=== PATIENT | male | born 1960 | race Caucasian/White ===

== ENCOUNTER 2018-07-09 10:40 | Emergency (ER) | payer OTHER, BC ==
[2018-07-09 10:54] VITALS: BP 162/99
[2018-07-09] MEDS ORDERED: Lidocaine 1% with EPINEPHrine 1:100,000 20 ML MDV INJECT ONE (11:04)
[2018-07-09] MEDS ORDERED: Diphtheria,Pertussis(Acell),Tetanus Vaccine 0.5 ML SDV IM ONE (11:04)
--- NOTE | 2018-07-09 11:33 | EDM.PDOC ---
ED HPI GENERAL MEDICAL PROBLEM - General Chief Complaint: Laceration Stated Complaint: LEFT HAND LAC Time Seen by Provider: 07/09/18 11:00 Source of Information: Reports: Patient History Limitations: Reports: No Limitations - History of Present Illness INITIAL COMMENTS - FREE TEXT/NARRATIVE: Patient is a 57 year old male who presents to the E.D. complaining of a laceration to the dorsal aspect of the left hand. 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 States the grinder set up operator gear tool accidentally jumped hitting his hand. Laceration did bleed quite abit. Controlled with direct pressure. Pain is localized. Denies N/T to fingers and or difficulty with moving fingers. Tetanus status is not up to date. Left Hand Pain Score (Numeric/FACES): 3 - Related Data Allergies Allergy/AdvReac Type Severity Reaction Status Date / Time hydrochlorothiazide Allergy Cannot Verified 07/09/18 10:55 Remember Home Meds: Home Meds B2/Vit A,C & E/Lut/Zeaxanth/Mn [Icaps] 1 each PO DAILY 02/02/14 [History] Lisinopril 5 mg PO DAILY 02/02/14 [History] Nitroglycerin 0.4 mg SL ASDIRECTED PRN 02/02/14 [History] amLODIPine [Norvasc] 10 mg PO BEDTIME 02/02/14 [History] Past Medical History HEENT History: Reports: Hard of Hearing, Impaired Vision Cardiovascular History: Reports: High Cholesterol, Hypertension, [place] Respiratory History: Reports: Bronchitis, Recurrent, Pneumonia, Recurrent Other Respiratory History: pleurssy Gastrointestinal History: Reports: GERD Genitourinary History: Reports: Other (See Below) Other Genitourinary History: prostate-has not seen doctor for it Musculoskeletal History: Reports: Arthritis, Back Pain, Chronic, Other (See Below) Other Musculoskeletal History: shoulder replacement Psychiatric History: Reports: Anxiety Oncologic (Cancer) History: Reports: None - Infectious Disease History Infectious Disease History: Reports: Chicken Pox - Past Surgical History GI Surgical History: Reports: Appendectomy Social & Family History - Family History Family Medical History: Noncontributory Oncologic: Reports: Lung - Tobacco Use Smoking Status *Q: Current Every Day Smoker Years of Tobacco use: 40 Packs/Tins Daily: 1 - Caffeine Use Caffeine Use: Reports: Coffee, Soda - Recreational Drug Use Recreational Drug Use: No - Living Situation & Occupation Living situation: Reports: , with Family Occupation: Employed ED ROS GENERAL - Review of Systems Review Of Systems: ROS reveals no pertinent complaints other than HPI. ED EXAM, SKIN/RASH Exam: See Below Exam Limited By: No Limitations General Appearance: Alert, WD/WN, No Apparent Distress Ears: Hearing Grossly Normal Nose: Normal Inspection Throat/Mouth: Normal Voice, No Airway Compromise Head: Atraumatic, Normocephalic Neck: Normal Inspection, Supple Respiratory/Chest: No Respiratory Distress, No Accessory Muscle Use Cardiovascular: Normal Peripheral Pulses, Regular Rate, Rhythm Peripheral Pulses: 2+: Radial (L) Extremities: Normal Range of Motion, Other (Patient is a 4 cm deep laceration to the dorsal aspect of the left hand along the second metacarpal. Small fragments of grinder set up operator gear tool pieces along the wound edges. Minimal bleeding present. With deeper examination no tendon involvement.) Neurological: Alert, Oriented, CN II-XII Intact, Normal Cognition, No Motor/ Sensory Deficits Psychiatric: Normal Affect, Normal Mood Skin: Warm, Dry, Normal Color ED SKIN PROCEDURES - Laceration/Wound Repair Left Dorsal Hand Lac/Wound length In cm: 4 Appearance: Subcutaneous, Mildly Contaminated Distal NVT: Neuro & Vascular Intact, No Tendon Injury Anesthetic Type: Local Local Anesthesia - Lidocaine (Xylocaine): 1% with EPI Local Anesthetic Volume: 5cc Skin Prep: Chlorhexidine (Hibiciens), Sterile Drape Exploration/Debridement/Repair: Wound Explored, In a Bloodless Field, Explored to Base, Foreign Material Removed Closed with: Sutures Suture Size: 4-0 # of Sutures: 5 Suture Type: Prolene, Interrupted (2), Mattress (3) Drain Placement: No Sterile Dressing Applied: Nurse Tetanus Status Addressed: Yes Complications: No Course - Vital Signs Last Recorded V/S: Last Vital Signs Temp 98.6 F 07/09/18 10:52 Pulse 91 07/09/18 10:52 Resp 18 07/09/18 10:52 BP 162/99 H 07/09/18 10:52 Pulse Ox 97 07/09/18 10:52 - Orders/Labs/Meds Orders: Active Orders 24 hr Category Date Time Status Vaccines to be Administered [RC] PER UNIT ROUTINE Care 07/09/18 11:05 Active Meds: Medications Discontinued Medications Generic Name Dose Route Start Last Admin Trade Name Freq PRN Reason Stop Dose Admin Diphtheria/Tetanus/Acell Pertussis 0.5 ml 07/09/18 11:04 Adacel IM 07/09/18 11:05 .ONCE ONE Lidocaine/Epinephrine 20 ml 07/09/18 11:04 07/09/18 11:11 Xylocaine 1% With Epinephrine 1:100,000 INJECT 07/09/18 11:05 20 ml ONETIME ONE Administration - Re-Assessments/Exams Free Text/Narrative Re-Assessment/Exam: Laceration closed with no complications. Tetanus status is up to date. On examination of the laceration there was no tendon involvement. The only superficial debris noted to the wound edges. No antibiotic required at this point. Discharge instructions as documented. Departure - Departure Time of Disposition: 11:32 Disposition: Home, Self-Care 01 Condition: Good Clinical Impression: Hand laceration Qualifiers: Encounter type: initial encounter Foreign body presence: without foreign body Laterality: left Qualified Code(s): S61.412A - Laceration without foreign body of left hand, initial encounter - Discharge Information Instructions: Laceration Care, Adult, Stitches, Constantia, or Adhesive Wound Closure Referrals: Maty Quijano MD [Primary Care Provider] - Forms: ED Department Discharge Additional Instructions: Cleanse site twice daily, PAT dry, reapply bacitracin ointment. Keep area clean and dry. Do not soak wound. Followup with a provider at [facility] in 10 days for suture removal free of charge. Return back to the ED for increased redness, increased swelling, or purulent drainage. - My Orders Last 24 Hours: My Active Orders 07/09/18 11:05 Vaccines to be Administered [RC] PER UNIT ROUTINE - Assessment/Plan Last 24 Hours: My Active Orders 07/09/18 11:05 Vaccines to be Administered [RC] PER UNIT ROUTINE
== END 2018-07-09 11:40 | disposition home or self-care (01) ==
LOC: JD.ED 10:40
DX: S61.422A Laceration with foreign body of left hand, initial encounter (principal); F17.210 Nicotine dependence, cigarettes, uncomplicated; I10 Essential (primary) hypertension; F41.9 Anxiety disorder, unspecified; I25.2 Old myocardial infarction; K21.9 Gastro-esophageal reflux disease without esophagitis; Z79.899 Other long term (current) drug therapy; Z23 Encounter for immunization; Z88.8 Allergy status to other drugs, medicaments and biological substances; W22.8XXA Striking against or struck by other objects, initial encounter
CPT/HCPCS: 12002; 90471; 90715; 99283-25

== ENCOUNTER 2019-07-22 18:24 | Emergency (ER) | payer BC, OTHER ==
[2019-07-22 18:41] VITALS: BP 160/105; PULSE 91
[2019-07-22] MEDS ORDERED: Acetaminophen/HYDROcodone 325-5 MG Tab PO ONE (20:39)
--- NOTE | 2019-07-22 20:41 | EDM.PDOC ---
ED HPI GENERAL MEDICAL PROBLEM - General Chief Complaint: Upper Extremity Injury/Pain Stated Complaint: R HAND INJURY Time Seen by Provider: 07/22/19 19:01 Source of Information: Reports: Patient, Family (, daughter), Other ( Daughter's boyfriend) History Limitations: Reports: No Limitations - History of Present Illness INITIAL COMMENTS - FREE TEXT/NARRATIVE: Mr. Canales is a pleasant 58-year-old man who states that he was holding onto an air hose that was being retracted at his place of work yesterday afternoon, 07/21/2019, when the hose pulled his hand. He states that he immediately experienced pain to his right thumb, but since then, he has developed numbness to his through fifth fingers, and if he moves his fingers or hands, pain shoots up into his forearm. His right hand, including the fingers, have become swollen. By 15:00, he was unable to move his fingers without significant pain. The patient states that he has not taken any lrpt-[id number]-axihnnf or home remedies to treat his injury. No prior right hand injury. The patient's PCP is Dr. Maty Quijano. Right Hand Pain Score (Numeric/FACES): 9 - Related Data Allergies Allergy/AdvReac Type Severity Reaction Status Date / Time hydrochlorothiazide Allergy Nausea Verified 07/22/19 18:41 Home Meds: Home Meds B2/Vit A,C & E/Lut/Zeaxanth/Mn [Icaps] 1 each PO DAILY 02/02/14 [History] Lisinopril 5 mg PO DAILY 02/02/14 [History] Nitroglycerin 0.4 mg SL ASDIRECTED PRN 02/02/14 [History] amLODIPine [Norvasc] 10 mg PO BEDTIME 02/02/14 [History] Acetaminophen/HYDROcodone [[place] 325-5 MG] 1 - 2 tab PO Q6H PRN #14 tablet 07/22 [Rx] Past Medical History HEENT History: Reports: Hard of Hearing, Impaired Vision Cardiovascular History: Reports: CAD (untreated), High Cholesterol (untreated), Hypertension (untreated), [place] (dx'd by coroary angiogram) Gastrointestinal History: Reports: GERD (untreated) Genitourinary History: Reports: BPH (untreated) Musculoskeletal History: Reports: Arthritis Psychiatric History: Reports: Anxiety (untreated) - Infectious Disease History Infectious Disease History: Reports: Chicken Pox - Past Surgical History Cardiovascular Surgical History: Reports: Other (See Below) (Coronary angiogram) GI Surgical History: Reports: Appendectomy, Lysis of Adhesions (x 4 or 5), Other (See Below) (Exploratory laparotomy) Musculoskeletal Surgical History: Reports: Shoulder Surgery (right arthroscopy x 3 -> failed -> reverse arthroplasty) Social & Family History - Family History Family Medical History: Noncontributory Oncologic: Reports: Lung - Tobacco Use Smoking Status *Q: Current Every Day Smoker Years of Tobacco use: 45 Packs/Tins Daily: 0.8 Packs/Tins Daily Comment: Down from 3 ppd - Caffeine Use Caffeine Use: Reports: Coffee - Alcohol Use Alcohol Use History: Yes Alcohol Use Frequency: Socially (occasionally to excess) - Recreational Drug Use Recreational Drug Use: Yes Recreational Drug Type: Reports: Marijuana/Hashish (last smoked ) - Living Situation & Occupation Living situation: Reports: , with Spouse, with Family (Daughter) 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 ED EXAM, GENERAL - Physical Exam Exam: See Below Exam Limited By: No Limitations General Appearance: Alert, WD/WN, No Apparent Distress Extremities: Other (There is swelling to the entire right hand, including the fingers, and extending to the wrist, with the most significant swelling to the thenar eminence and dorsal aspect of the first MCP joint. The first MCP joint is so tender that the patient is guarding, however, he also reports tenderness to palpation of his fingers, which he reports have paresthesia. Vascular status of the right upper strongly appears to be intact, as all fingers are warm. The patient refuses to try to move his fingers, hand or wrist, due to pain.) ED TRAUMA EXTREMITY PROCEDURES - Splinting Right Upper Extremity Splint Site: Right hand/wrist Pre-Procedure NV Status: Abnormal (Paresthesia all fingers, well-perfused) Post-Procedure NV Status: Abnormal (Paresthesia all fingers, well-perfused, unchanged) Splint Material: Fiberglass Splint Design: Gutter (ulnar) Applied & Form Fitted By: Provider Provider Post-Splint Application NV Check: NV Status Normal (Paresthesia all fingers, well-perfused, unchanged), Good Position Complications: No Course - Vital Signs Last Recorded V/S: Last Vital Signs Temp 36.6 C 07/22/19 18:37 Pulse 91 07/22/19 18:37 Resp 20 07/22/19 18:37 BP 160/105 H 07/22/19 18:37 Pulse Ox 100 07/22/19 18:37 - Orders/Labs/Meds Orders: Active Orders 24 hr Category Date Time Status Hand Comp Min 3V Rt [CR] Stat Exams 07/22/19 20:38 Taken Wrist Comp Min 3V Rt [CR] Stat Exams 07/22/19 20:39 Taken Meds: Medications Discontinued Medications Generic Name Dose Route Start Last Admin Trade Name Freq PRN Reason Stop Dose Admin Hydrocodone Bitart/Acetaminophen 2 tab 07/22/19 20:39 07/22/19 21:00 [place] 325-5 Mg PO 07/22/19 20:40 2 tab ONETIME ONE Administration - Re-Assessments/Exams Free Text/Narrative Re-Assessment/Exam: 07/22/19 20:40 Clearly, there is significant swelling to the patient's right hand, to the point that he has significant paresthesia to all of his fingers, with pain to his hand shooting up his right forearm with virtually any movement of his hand or fingers. The patient is guarding his right hand, reflecting how painful it is. I have ordered x-rays of the hand and wrist to rule out a fracture, although the mechanism of his injury does not suggest a fracture. I have also ordered 2 tablets of [place]. 07/22/19 21:06 There appears to be a comminuted fracture of the patient's trapezium, and there may be a small intra-articular chip fracture to the volar aspect of the radius, but I am not certain, therefore I have asked [facility] to interpret. 07/22/19 21:47 4-view radiographs of the right hand are read by [facility] as "No acute findings." 4-view radiographs of the right wrist are read by [facility] as "Degenerative change. No obvious acute bony abnormality. If symptoms persist then MRI." 07/22/19 22:55 The patient's right upper extremity was placed into an ulnar gutter splint extending from the MCPs to above the elbow, with the hand in a thumbs-up position, and the elbow at 90. The patient tolerated the procedure well. I will discharge him home with the recommendation that he take wetx-yhl-axfavwy ibuprofen vimywq-yld-kmxot, ice, and elevate his right and/wrist as much as possible over the next couple of days. I will prescribe some [place]. I will refer him to Dr. Lomas for follow-up. Departure - Departure Time of Disposition: 22:56 Disposition: Home, Self-Care 01 Condition: Good Clinical Impression: Trapezium bone fracture, closed - Discharge Information *PRESCRIPTION DRUG MONITORING PROGRAM REVIEWED*: Not Applicable *COPY OF PRESCRIPTION DRUG MONITORING REPORT IN PATIENT RASHIDA: Not Applicable Prescriptions: Acetaminophen/HYDROcodone [[place] 325-5 MG] 1 - 2 tab PO Q6H PRN #14 tablet PRN Reason: Pain (Severe 7-10) Referrals: Maty Quijano MD [Primary Care Provider] - Julio C Lomas MD [Physician] - Forms: ED Department Discharge Additional Instructions: You were seen in the emergency room after injuring your right hand and wrist area when it was pulled by a retracting air hose Friday. Workup in the ER included x-rays of your right hand and right wrist, which likely show a fracture of your trapezium bone. You may also have a chip off your distal radius. Your right arm was placed into a splint. The splint cannot get wet. We recommend that you ice and elevate your right hand/wrist as much as possible over the next few days, to help minimize swelling. Take pdqh-ijd-sdrkhup ibuprofen, 3 tablets (600 mg) every 8 hours, around-the- clock. You have been prescribed the opioid pain reliever [place]. Take 1-2 tablets of [place] up to every 6 hours, as needed for pain not relieved by ibuprofen. If you take [place], do not drive or operate heavy machinery for 12 hours after taking. [place] may cause constipation, so consider taking a stool softener. Follow-up with the Orthopedic Surgeon Dr. Julio C Lomas at the next available appointment. If any other problems, please do not hesitate to return to the ER. - My Orders Last 24 Hours: My Active Orders 07/22/19 20:38 Hand Comp Min 3V Rt [CR] Stat 07/22/19 20:39 Wrist Comp Min 3V Rt [CR] Stat - Assessment/Plan Last 24 Hours: My Active Orders 07/22/19 20:38 Hand Comp Min 3V Rt [CR] Stat 07/22/19 20:39 Wrist Comp Min 3V Rt [CR] Stat
--- NOTE | 2019-07-23 07:09 | CR ---
Right hand: Four views of the right hand were obtained. Comparison: No prior hand exam. Findings: Bony debris seen off the lateral side of the wrist (radial side) compatible with previous injury. Margin of these fractures are somewhat sclerotic and findings are most likely old. Joint space narrowing is noted within the third MCP joint. Mild degenerative change is noted within the CMC joint of the thumb. No acute fracture or other bony abnormality is seen. Impression: 1. Bone debris most likely representing old injury off the radial side of the wrist. 2. Degenerative change. 3. Nothing acute is definitely appreciated. Diagnostic code #2 I agree with preliminary report issued by [facility] ([facility] preliminary report dictated on 07/22/19, 10:42 PM Central Time)
--- NOTE | 2019-07-23 07:09 | CR ---
Right wrist: Four views of the right wrist were obtained. Comparison: No prior right wrist exam. Small bony densities again seen off the radial side of the wrist. As mentioned on hand exam, these are felt compatible with old fracture fragments. Mild degenerative change is seen within the CMC joint of the thumb. No acute fracture, dislocation or other bony abnormality is seen. Soft tissue swelling is noted. Impression: 1. Presumed old injury off the radial side of the wrist. 2. Soft tissue swelling. 3. Degenerative change without definite acute bony abnormality. Note: If patient continues to have symptoms, recommend repeat study in 10-14 days. Diagnostic code #3 Agree with preliminary report issued by [facility] ([facility] preliminary report dictated on 07/22/19, 10:42 PM Central Time)
== END 2019-07-22 23:07 | disposition home or self-care (01) ==
LOC: JD.ED 18:24
DX: S62.171A Displaced fracture of trapezium [larger multangular], right wrist, initial encounter for closed fracture (principal); I10 Essential (primary) hypertension; I25.10 Atherosclerotic heart disease of native coronary artery without angina pectoris; F17.200 Nicotine dependence, unspecified, uncomplicated; Z79.899 Other long term (current) drug therapy; Z88.8 Allergy status to other drugs, medicaments and biological substances; X50.9XXA Other and unspecified overexertion or strenuous movements or postures, initial encounter; Y93.89 Activity, other specified; Y92.89 Other specified places as the place of occurrence of the external cause; Y99.0 Civilian activity done for income or pay
CPT/HCPCS: 29125; 73110; 73130; 99283; A9270

== ENCOUNTER 2020-01-14 02:50 | Inpatient (IN) | payer MEDICARE, OTHER ==
[2020-01-14] MEDS ORDERED: HYDROmorphone 1 MG/ML Syringe IVPUSH STA (03:52)
[2020-01-14] MEDS ORDERED: Ondansetron 4 MG/2 ML SDV IVPUSH ONE (03:52)
--- NOTE | 2020-01-14 03:56 | EDM.PDOC ---
ED HPI GENERAL MEDICAL PROBLEM - General Chief Complaint: Abdominal Pain Stated Complaint: ABDOMINAL PAIN Time Seen by Provider: 01/14/20 03:37 Source of Information: Reports: Patient, Family (Arrived at end ) History Limitations: Reports: No Limitations - History of Present Illness INITIAL COMMENTS - FREE TEXT/NARRATIVE: Mr. Canales is a pleasant 59-year-old man with past medical history significant for hypertension, dyslipidemia, GERD, BPH, anxiety, depression, and coronary artery disease status post an MO, all untreated, who states that he has had recurrent abdominal pain, most likely due to small bowel obstructions, about every 1 to 3 years, ever since he fell on a knife while deer hunting in 1981. He has undergone 4 or 5 exploratory laparotomies with lysis of adhesions since then. He now presents to the ED stating that he redeveloped the same sort of lysed abdominal pain around 10 AM yesterday, , 01/13/2020. He states that the pain is sharp and stabbing in character. It is constant, but has been progressively getting worse. He has not identified any modifiers. No recent fever, nausea, vomiting, diarrhea, or urinary symptoms. He states that his last bowel movement was 01/12/2020, and that it was hard. The patient states that he took a stool softener yesterday afternoon, but that it did not help. Other than the above symptoms, the patient denies recent fever, chills, cough, dyspnea, chest pain, palpitations, nausea, vomiting, constipation, diarrhea, abdominal pain, urinary symptoms, recent weight gain or weight loss, recent bloody bowel movements or black bowel movements, recent joint aches, headaches, or rashes. Here in the ED, the patient's BP is found to be mildly elevated at 155/91. Otherwise, he is hemodynamically stable, afebrile, saturating 99% on room air. The patient's PCP is Dr. Maty Quijano. He did not receive an influenza vaccine this season, and declined an offer to receive one here today. Abdomen Pain Score (Numeric/FACES): 9 - Related Data Allergies Allergy/AdvReac Type Severity Reaction Status Date / Time hydrochlorothiazide Allergy Nausea Verified 01/14/20 03:01 Home Meds: Home Meds B2/Vits A,C,E/Lut/Zeaxanth/Min [Icaps] 1 each PO DAILY 02/02/14 [History] Lisinopril 5 mg PO DAILY 02/02/14 [History] Nitroglycerin 0.4 mg SL ASDIRECTED PRN 02/02/14 [History] amLODIPine [Norvasc] 10 mg PO BEDTIME 02/02/14 [History] Acetaminophen/HYDROcodone [[place] 325-5 MG] 1 - 2 tab PO Q6H PRN #14 tablet 07/22 [Rx] Past Medical History HEENT History: Reports: Hard of Hearing, Impaired Vision Cardiovascular History: Reports: CAD, High Cholesterol (untreated), Hypertension (untreated), MO (x 2) Gastrointestinal History: Reports: GERD (untreated) Genitourinary History: Reports: BPH (untreated) Musculoskeletal History: Reports: Arthritis Psychiatric History: Reports: Anxiety (untreated), Depression (untreated) - Infectious Disease History Infectious Disease History: Reports: Chicken Pox - Past Surgical History Cardiovascular Surgical History: Reports: Other (See Below) (Coronary angiogram x 2 or 3. No stents.) GI Surgical History: Reports: Appendectomy, Lysis of Adhesions (exploratory laparotommy x 4 or 5) Musculoskeletal Surgical History: Reports: Shoulder Surgery (right, arthroscopic x 3 -> failed -> reverse arthroplasty) Social & Family History - Family History Family Medical History: Noncontributory Oncologic: Reports: Lung - Tobacco Use Smoking Status *Q: Current Every Day Smoker Years of Tobacco use: 45 Packs/Tins Daily: 0.8 Packs/Tins Daily Comment: Down from 3 ppd - Caffeine Use Caffeine Use: Reports: Coffee - Alcohol Use Alcohol Use History: Yes Days Per Week of Alcohol Use: 5 Number of Drinks Per Day: 3 Total Drinks Per Week: 15 Date/Time of Last Drink Comment: occasionally to excess - Recreational Drug Use Recreational Drug Use: Yes Drug Use in Last 12 Months: No Recreational Drug Type: Reports: Marijuana/Hashish (last smoked in 1970s) - Living Situation & Occupation Living situation: Reports: , with Spouse, with Family (Daughter) 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 ED EXAM, GI/ABD - Physical Exam Exam: See Below Exam Limited By: No Limitations General Appearance: Alert, WD/WN, No Apparent Distress Eyes: Bilateral: Normal Appearance, EOMI Ears: Normal External Exam, Hearing Grossly Normal Nose: Normal Inspection Throat/Mouth: Normal Inspection, Normal Lips, Normal Voice, No Airway Compromise Head: Atraumatic, Normocephalic Neck: Normal Inspection, Full Range of Motion Respiratory/Chest: No Respiratory Distress, Lungs Clear, Normal Breath Sounds, No Accessory Muscle Use Cardiovascular: Normal Peripheral Pulses, Regular Rate, Rhythm, No Edema, No Gallop, No JVD, No Murmur, No Rub GI/Abdominal Exam: Normal Bowel Sounds (active), Soft, No Organomegaly, No Distention, No Abnormal Bruit, No Mass, Tender (Most of abdomen is nontender, but the patient did jump when his left lower quadrant was palpated) (Male) Exam: Deferred Rectal (Males) Exam: Deferred Back Exam: Normal Inspection, Full Range of Motion. No: CVA Tenderness (L), CVA Tenderness (R) Extremities: Normal Inspection, Normal Range of Motion, No Pedal Edema, Normal Capillary Refill Neurological: Alert, Oriented, Normal Cognition, No Motor/Sensory Deficits Psychiatric: Normal Affect Skin Exam: Warm, Dry, Intact, Normal Color, No Rash Course - Vital Signs Last Recorded V/S: Last Vital Signs Temp 36.7 C 01/14/20 02:57 Pulse 84 01/14/20 02:57 Resp 14 01/14/20 02:57 BP 155/91 H 01/14/20 02:57 Pulse Ox 99 01/14/20 02:57 - Orders/Labs/Meds Orders: Active Orders 24 hr Category Date Time Status Abdomen Pelvis w Cont [CT] Stat Exams 01/14/20 03:52 Taken Sodium Chloride 0.9% [Normal Saline] 1,000 ml Med 01/14/20 04:00 Active IV ASDIRECTED Medication Orders Sodium Chloride (Normal Saline) 1,000 mls @ 150 mls/hr IV ASDIRECTED MIGUEL Last Admin: 01/14/20 04:07 Dose: 150 mls/hr Labs: Laboratory Tests 01/14/20 01/14/20 Range/Units 04:00 04:00 WBC 10.60 H (4.23-9.07) K/mm3 RBC 5.43 (4.63-6.08) M/mm3 Hgb 17.2 (13.7-17.5) gm/dl Hct 50.2 (40.1-51.0) % MCV 92.4 H (79.0-92.2) fl MCH 31.7 (25.7-32.2) pg MCHC 34.3 (32.2-35.5) g/dl RDW Std Deviation 48.3 H (35.1-43.9) fL Plt Count 242 (163-337) K/mm3 MPV 8.6 L (9.4-12.3) fl Neutrophils % (Manual) 92 H (40-60) % Band Neutrophils % 0 (0-10) % Lymphocytes % (Manual) 5 L (20-40) % Atypical Lymphs % 0 % Monocytes % (Manual) 3 (2-10) % Eosinophils % (Manual) 0 L (0.8-7.0) % Basophils % (Manual) 0 L (0.2-1.2) Platelet Estimate Adequate RBC Morph Comment Normal Sodium 133 L (136-145) mEq/L Potassium 4.1 (3.5-5.1) mEq/L Chloride 97 L (98-107) mEq/L Carbon Dioxide 26 (21-32) mEq/L Anion Gap 14.1 (5-15) BUN 8 (7-18) mg/dL Creatinine 0.7 (0.7-1.3) mg/dL Est Cr Clr Drug Dosing 108.57 mL/min Estimated GFR (MDRD) > 60 (>60) mL/min BUN/Creatinine Ratio 11.4 L (14-18) Glucose 107 H (74-106) mg/dL Calcium 9.0 (8.5-10.1) mg/dL Total Bilirubin 0.6 (0.2-1.0) mg/dL AST 16 (15-37) U/L ALT 16 (16-63) U/L Alkaline Phosphatase 81 (46-116) U/L Total Protein 7.3 (6.4-8.2) g/dl Albumin 3.7 (3.4-5.0) g/dl Globulin 3.6 gm/dL Albumin/Globulin Ratio 1.0 (1-2) Lipase 40 L (73-393) U/L Meds: Medications Generic Name Dose Route Start Last Admin Trade Name Freq PRN Reason Stop Dose Admin Sodium Chloride 1,000 mls @ 150 mls/hr 01/14/20 04:00 01/14/20 04:07 Normal Saline IV 150 mls/hr ASDIRECTED MIGUEL Administration Discontinued Medications Generic Name Dose Route Start Last Admin Trade Name Piyush PRN Reason Stop Dose Admin Diatrizoate Meglum/Diatrizoate Sod 90 ml 01/14/20 04:52 01/14/20 05:30 Gastrografin 37% PO 01/14/20 04:53 90 ml ONETIME ONE Administration Hydromorphone HCl 1 mg 01/14/20 03:52 01/14/20 04:06 Dilaudid IVPUSH 01/14/20 03:53 1 mg ONETIME STA Administration Iopamidol 100 ml 01/14/20 04:52 01/14/20 05:30 Isovue-300 (61%) IVPUSH 01/14/20 04:53 100 ml ONETIME ONE Administration Ondansetron HCl 4 mg 01/14/20 03:52 01/14/20 04:06 Zofran IVPUSH 01/14/20 03:53 4 mg ONETIME ONE Administration - Re-Assessments/Exams Free Text/Narrative Re-Assessment/Exam: 01/14/20 03:54 As above, the patient is complaining of progressively worsening generalized abdominal pain, similar to what he has experienced in the past due to what sounds like recurrent small bowel obstructions. On examination today, he has active bowel sounds, and most of his abdomen is nontender, although he did jump a bit when I palpated his left lower quadrant. Given his past medical and surgical history, I have ordered an evaluation today did include blood work and a CT scan of his abdomen and pelvis with oral and IV contrast. In the meantime , the patient will be given IV Dilaudid, IV Zofran, and IV fluid. 01/14/20 05:29 The patient CBC is remarkable for a WBC count mildly elevated at 10.60, but with 0% bandemia. The remainder of his CBC is unremarkable. His CMP is remarkable for a sodium slightly depressed at 133 with a chloride slightly depressed at 97, and a blood glucose slightly elevated at 107, with the remainder of his CMP being unremarkable. His lipase is low at 40. 01/14/20 06:24 CT of the abdomen and pelvis with oral and IV contrast as read by [facility] as: 1. Mild distal small bowel obstruction. 2. Small free fluid, could be reactive. 3. Nonurgent findings similar to 04/20/16 as above. Since the patient's SBO is felt to be mild, and the patient denies having nausea , gastrointestinal decompression is not urgently needed, however, I am going to recommend admission to the hospital. 01/14/20 06:32 Test results and my recommendation for admission to the hospital discussed with the patient. He is agreeable. 01/14/20 06:[address] Sandy at 06:33. He agreed to place the patient into observation. Departure - Departure Time of Disposition: 06:35 Disposition: Refer to Observation Condition: Good Clinical Impression: Small bowel obstruction - Discharge Information *PRESCRIPTION DRUG MONITORING PROGRAM REVIEWED*: Not Applicable *COPY OF PRESCRIPTION DRUG MONITORING REPORT IN PATIENT RASHIDA: Not Applicable Referrals: Maty Quijano MD [Primary Care Provider] - Forms: ED Department Discharge Sepsis Event Note - Evaluation Sepsis Screening Result: No Definite Risk - Focused Exam Vital Signs: Vital Signs Temp Pulse Resp BP Pulse Ox 01/14/20 02:57 36.7 C 84 14 155/91 H 99 Date Exam was Performed: 01/14/20 Time Exam was Performed: 06:24 - My Orders Last 24 Hours: My Active Orders 01/14/20 03:52 Abdomen Pelvis w Cont [CT] Stat 01/14/20 04:00 Sodium Chloride 0.9% [Normal Saline] 1,000 ml IV ASDIRECTED - Assessment/Plan Last 24 Hours: My Active Orders 01/14/20 03:52 Abdomen Pelvis w Cont [CT] Stat 01/14/20 04:00 Sodium Chloride 0.9% [Normal Saline] 1,000 ml IV ASDIRECTED
[2020-01-14] MEDS: Sodium Chloride 0.9% 1,000 ML IV SCH ×2 (04:07→13:09)
[2020-01-14] MEDS ORDERED: Diatrizoate Meglumine/Diatrizoate Sodium 37% 120 ML Bottle PO ONE (04:52)
[2020-01-14] MEDS ORDERED: Iopamidol 612 MG/ML 100 ML Bottle IVPUSH ONE (04:52)
--- NOTE | 2020-01-14 07:19 | CT ---
CT abdomen and pelvis Technique: Multiple axial sections were obtained from above the dome of the diaphragm inferiorly through the pubic symphysis. Intravenous and oral contrast was utilized. Delayed images were also obtained through the bladder. Comparison: Prior CT abdomen and pelvis study of 04/20/16. Findings: Visualized lung bases show nothing acute. Liver shows no focal parenchymal abnormality. Spleen appears within normal limits. Reflux of contrast seen in the esophagus compatible with gastroesophageal reflux. Left adrenal nodule is seen which appears stable from prior exam measuring 2.0 cm. Right adrenal gland is within normal limits. Pancreas shows no discrete abnormality. Kidneys show symmetric contrast enhancement without hydronephrosis or mass. Right kidney shows a small cyst measuring 1.1 cm in size. Kidneys otherwise appear within normal limits. Aorta shows atherosclerotic calcification without aneurysm. No retroperitoneal adenopathy or mesenteric abnormalities are seen. No pelvic mass or adenopathy is seen. Delayed images show contrast within the distal ureters and within the bladder. Appendix not seen with certainty. Minimal free fluid is seen within the pelvis likely reactive to the small bowel process. Mildly dilated small bowel loops are seen into the pelvis. Findings suspicious for distal small bowel obstruction. Etiology for this is not seen findings most likely relate to obstruction from adhesions. Impression: 1. Multiple dilated loops of small bowel suspicious for distal small bowel obstruction most likely from an adhesion. 2. Other findings within the abdomen which are stable from previous CT abdomen and pelvis exam. Diagnostic code #3 Agree with preliminary report issued by [employer] ([facility] preliminary report dictated on 01/14/20, 7:22 AM Central Time) Study was dictated in MDT
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
[2020-01-14] MEDS ORDERED: Ondansetron 4 MG/2 ML SDV IV PRN (11:47)
[2020-01-14] MEDS: Nicotine 21 MG/24 Hr Patch TRDERM SCH (12:37)
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
[2020-01-14] MEDS: Dextrose 5%-0.45% NaCl 1,000 ML IV SCH (18:08)
[2020-01-15] MEDS: Dextrose 5%-0.45% NaCl 1,000 ML IV SCH (04:49)
[2020-01-15] MEDS: Nicotine 21 MG/24 Hr Patch TRDERM SCH (11:21)
--- NOTE | 2020-01-15 13:25 | PCM.SURGPN ---
- General Info Date of Service: 01/15/20 Pain Score: 0 - Review of Systems General: Reports: No Symptoms HEENT: Reports: No Symptoms Pulmonary: Reports: No Symptoms Cardiovascular: Reports: No Symptoms Gastrointestinal: Reports: No Symptoms Genitourinary: Reports: No Symptoms Musculoskeletal: Reports: No Symptoms Skin: Reports: No Symptoms - Patient Data Vitals - Most Recent: Last Vital Signs Temp 98.1 F 01/15/20 04:28 Pulse 66 01/15/20 04:28 Resp 18 01/15/20 04:28 BP 150/73 H 01/15/20 04:28 Pulse Ox 95 01/15/20 04:28 Weight - Most Recent: 70.171 kg I&O - Last 24 Hours: Intake & Output 01/14/20 01/15/20 01/15/20 22:59 06:59 14:59 Intake Total 0 1256 1060 Output Total 700 Balance -700 1256 1060 Lab Results Last 24 Hrs: Laboratory Results - last 24 hr 01/14/20 01/15/20 01/15/20 Range/Units 17:03 00:48 06:35 WBC 8.60 (4.23-9.07) K/mm3 RBC 4.68 (4.63-6.08) M/mm3 Hgb 15.0 D (13.7-17.5) gm/dl Hct 44.6 (40.1-51.0) % MCV 95.3 H (79.0-92.2) fl MCH 32.1 (25.7-32.2) pg MCHC 33.6 (32.2-35.5) g/dl RDW Std Deviation 49.2 H (35.1-43.9) fL Plt Count 213 (163-337) K/mm3 MPV 8.8 L (9.4-12.3) fl Neut % (Auto) 73.6 H (34.0-67.9) % Lymph % (Auto) 14.5 L (21.8-53.1) % [place] % (Auto) 8.6 (5.3-12.2) % Eos % (Auto) 3.0 (0.8-7.0) Baso % (Auto) 0.2 (0.1-1.2) % Neut # (Auto) 6.32 H (1.78-5.38) K/mm3 Lymph # (Auto) 1.25 L (1.32-3.57) K/mm3 [place] # (Auto) 0.74 (0.30-0.82) K/mm3 Eos # (Auto) 0.26 (0.04-0.54) K/mm3 Baso # (Auto) 0.02 (0.01-0.08) K/mm3 Sodium (136-145) mEq/L Potassium (3.5-5.1) mEq/L Chloride (98-107) mEq/L Carbon Dioxide (21-32) mEq/L Anion Gap (5-15) BUN (7-18) mg/dL Creatinine (0.7-1.3) mg/dL Est Cr Clr Drug Dosing mL/min Estimated GFR (MDRD) (>60) mL/min BUN/Creatinine Ratio (14-18) Glucose (74-106) mg/dL POC Glucose 92 95 (70-105) mg/dL Calcium (8.5-10.1) mg/dL Phosphorus (2.6-4.7) mg/dL Magnesium (1.8-2.4) mg/dl 01/15/20 Range/Units 06:35 WBC (4.23-9.07) K/mm3 RBC (4.63-6.08) M/mm3 Hgb (13.7-17.5) gm/dl Hct (40.1-51.0) % MCV (79.0-92.2) fl MCH (25.7-32.2) pg MCHC (32.2-35.5) g/dl RDW Std Deviation (35.1-43.9) fL Plt Count (163-337) K/mm3 MPV (9.4-12.3) fl Neut % (Auto) (34.0-67.9) % Lymph % (Auto) (21.8-53.1) % [place] % (Auto) (5.3-12.2) % Eos % (Auto) (0.8-7.0) Baso % (Auto) (0.1-1.2) % Neut # (Auto) (1.78-5.38) K/mm3 Lymph # (Auto) (1.32-3.57) K/mm3 [place] # (Auto) (0.30-0.82) K/mm3 Eos # (Auto) (0.04-0.54) K/mm3 Baso # (Auto) (0.01-0.08) K/mm3 Sodium 138 (136-145) mEq/L Potassium 3.6 (3.5-5.1) mEq/L Chloride 104 (98-107) mEq/L Carbon Dioxide 25 (21-32) mEq/L Anion Gap 12.6 (5-15) BUN 6 L (7-18) mg/dL Creatinine 0.7 (0.7-1.3) mg/dL Est Cr Clr Drug Dosing 108.57 mL/min Estimated GFR (MDRD) > 60 (>60) mL/min BUN/Creatinine Ratio 8.6 L (14-18) Glucose 113 H (74-106) mg/dL POC Glucose (70-105) mg/dL Calcium 7.9 L (8.5-10.1) mg/dL Phosphorus 3.1 (2.6-4.7) mg/dL Magnesium 1.8 (1.8-2.4) mg/dl Med Orders - Current: Current Medications Miscellaneous Information (Remove Patch) 0 ea [facility] DAILY [facility] Last Admin: 01/15/20 11:22 Dose: Not Given Nicotine (Habitrol) 21 mg [facility] DAILY [facility] Last Admin: 01/15/20 11:21 Dose: Not Given Ondansetron HCl (Zofran) 4 mg IV Q6H PRN PRN Reason: Nausea/Vomiting Discontinued Medications Diatrizoate Meglum/Diatrizoate Sod (Gastrografin 37%) 90 ml PO ONETIME ONE Stop: 01/14/20 04:53 Last Admin: 01/14/20 05:30 Dose: 90 ml Hydromorphone HCl (Dilaudid) 1 mg IVPUSH ONETIME STA Stop: 01/14/20 03:53 Last Admin: 01/14/20 04:06 Dose: 1 mg Sodium Chloride (Normal Saline) 1,000 mls @ 150 mls/hr IV ASDIRECTED [facility] Last Admin: 01/14/20 13:09 Dose: 150 mls/hr Dextrose/Sodium Chloride (Dextrose 5%-1/2 Ns) 1,000 mls @ 100 mls/hr IV ASDIRECTED [facility] Last Admin: 01/15/20 04:49 Dose: 100 mls/hr Iopamidol (Isovue-300 (61%)) 100 ml IVPUSH ONETIME ONE Stop: 01/14/20 04:53 Last Admin: 01/14/20 05:30 Dose: 100 ml Ondansetron HCl (Zofran) 4 mg IVPUSH ONETIME ONE Stop: 01/14/20 03:53 Last Admin: 01/14/20 04:06 Dose: 4 mg - Exam General: Alert, Oriented, Cooperative, No Acute Distress Lungs: Clear to Auscultation, Normal Respiratory Effort Cardiovascular: Regular Rate, Regular Rhythm, No Murmurs GI/Abdominal Exam: Soft, Non-Tender, No Organomegaly, No Distention Sepsis Event Note - Evaluation Sepsis Screening Result: No Definite Risk - Focused Exam Vital Signs: Vital Signs Temp Pulse Resp BP Pulse Ox 01/15/20 04:28 98.1 F 66 18 150/73 H 95 Date Exam was Performed: 01/15/20 Time Exam was Performed: 13:21 - Problem List Review Problem List Initiated/Reviewed/Updated: No - My Orders Last 24 Hours: Active Orders 24 hr Category Date Time Status Antiembolic Devices [RC] PER UNIT ROUTINE Care 01/15/20 11:00 Active Soft Diet [DIET] Diet 01/15/20 Lunch Active Abdomen 1V Upright [CR] Routine Exams 01/15/20 08:00 Taken BASIC METABOLIC PANEL,BMP [CHEM] AM Lab 01/16/20 05:11 Ordered BASIC METABOLIC PANEL,BMP [CHEM] AM Lab 01/17/20 05:11 Ordered BASIC METABOLIC PANEL,BMP [CHEM] AM Lab 01/18/20 05:11 Ordered CBC WITH AUTO DIFF [HEME] AM Lab 01/16/20 05:11 Ordered CBC WITH AUTO DIFF [HEME] AM Lab 01/17/20 05:11 Ordered CBC WITH AUTO DIFF [HEME] AM Lab 01/18/20 05:11 Ordered MAGNESIUM [CHEM] AM Lab 01/16/20 05:11 Ordered MAGNESIUM [CHEM] AM Lab 01/17/20 05:11 Ordered MAGNESIUM [CHEM] AM Lab 01/18/20 05:11 Ordered Nicotine [Habitrol] Med 01/14/20 12:30 Active 21 mg TRDERM DAILY Remove Patch Med 01/15/20 09:00 Active 0 ea TRDERM DAILY [facility] Hose [Antiembolic Hose] [OM.PC] Routine Oth 01/15/20 10:59 Ordered Medication Orders Miscellaneous Information (Remove Patch) 0 ea [facility] Last Admin: 01/15/20 11:22 Dose: Not Given Nicotine (Habitrol) 21 mg [facility] DAILY [facility] Last Admin: 01/15/20 11:21 Dose: Not Given Admin: 01/14/20 12:37 Dose: Not Given Ondansetron HCl (Zofran) 4 mg IV Q6H PRN PRN Reason: Nausea/Vomiting - Plan Plan (Free Text/Narrative):: Patient passing flatus and had several Bms yesterday. Abd xray reveals contrast in the colon.He had mild pain this AM but this is done now. No nausea or vomiting. On exam, abd soft, NT, ND. Plan - start CLD, advance to soft diet today - If tolerates this, likely dc home tomorrow
--- NOTE | 2020-01-15 16:26 | PCM.PN ---
- General Info Date of Service: 01/15/20 Admission Dx/Problem (Free Text): Admission Diagnosis/Problem Admission Diagnosis/Problem Partial bowel obstruction Subjective Update: Patient had a bowel movement, tolerated clear liquids, is currently without pain , and ambulating in the [place]. Functional Status: Reports: Pain Controlled - Review of Systems General: Reports: No Symptoms HEENT: Reports: No Symptoms Pulmonary: Reports: No Symptoms Cardiovascular: Reports: No Symptoms Gastrointestinal: Reports: No Symptoms - Patient Data Vitals - Most Recent: Last Vital Signs Temp 98.1 F 01/15/20 15:04 Pulse 66 01/15/20 15:04 Resp 16 01/15/20 15:04 BP 159/90 H 01/15/20 15:04 Pulse Ox 99 01/15/20 15:04 Weight - Most Recent: 154 lb 11.2 oz I&O - Last 24 Hours: Intake & Output 01/15/20 01/15/20 01/15/20 06:59 14:59 22:59 Intake Total 1256 1360 350 Balance 1256 1360 350 Lab Results Last 24 Hours: Laboratory Results - last 24 hr 01/14/20 01/15/20 01/15/20 Range/Units 17:03 00:48 06:35 WBC 8.60 (4.23-9.07) K/mm3 RBC 4.68 (4.63-6.08) M/mm3 Hgb 15.0 D (13.7-17.5) gm/dl Hct 44.6 (40.1-51.0) % MCV 95.3 H (79.0-92.2) fl MCH 32.1 (25.7-32.2) pg MCHC 33.6 (32.2-35.5) g/dl RDW Std Deviation 49.2 H (35.1-43.9) fL Plt Count 213 (163-337) K/mm3 MPV 8.8 L (9.4-12.3) fl Neut % (Auto) 73.6 H (34.0-67.9) % Lymph % (Auto) 14.5 L (21.8-53.1) % [place] % (Auto) 8.6 (5.3-12.2) % Eos % (Auto) 3.0 (0.8-7.0) Baso % (Auto) 0.2 (0.1-1.2) % Neut # (Auto) 6.32 H (1.78-5.38) K/mm3 Lymph # (Auto) 1.25 L (1.32-3.57) K/mm3 [place] # (Auto) 0.74 (0.30-0.82) K/mm3 Eos # (Auto) 0.26 (0.04-0.54) K/mm3 Baso # (Auto) 0.02 (0.01-0.08) K/mm3 Sodium (136-145) mEq/L Potassium (3.5-5.1) mEq/L Chloride (98-107) mEq/L Carbon Dioxide (21-32) mEq/L Anion Gap (5-15) BUN (7-18) mg/dL Creatinine (0.7-1.3) mg/dL Est Cr Clr Drug Dosing mL/min Estimated GFR (MDRD) (>60) mL/min BUN/Creatinine Ratio (14-18) Glucose (74-106) mg/dL POC Glucose 92 95 (70-105) mg/dL Calcium (8.5-10.1) mg/dL Phosphorus (2.6-4.7) mg/dL Magnesium (1.8-2.4) mg/dl 01/15/20 Range/Units 06:35 WBC (4.23-9.07) K/mm3 RBC (4.63-6.08) M/mm3 Hgb (13.7-17.5) gm/dl Hct (40.1-51.0) % MCV (79.0-92.2) fl MCH (25.7-32.2) pg MCHC (32.2-35.5) g/dl RDW Std Deviation (35.1-43.9) fL Plt Count (163-337) K/mm3 MPV (9.4-12.3) fl Neut % (Auto) (34.0-67.9) % Lymph % (Auto) (21.8-53.1) % [place] % (Auto) (5.3-12.2) % Eos % (Auto) (0.8-7.0) Baso % (Auto) (0.1-1.2) % Neut # (Auto) (1.78-5.38) K/mm3 Lymph # (Auto) (1.32-3.57) K/mm3 [place] # (Auto) (0.30-0.82) K/mm3 Eos # (Auto) (0.04-0.54) K/mm3 Baso # (Auto) (0.01-0.08) K/mm3 Sodium 138 (136-145) mEq/L Potassium 3.6 (3.5-5.1) mEq/L Chloride 104 (98-107) mEq/L Carbon Dioxide 25 (21-32) mEq/L Anion Gap 12.6 (5-15) BUN 6 L (7-18) mg/dL Creatinine 0.7 (0.7-1.3) mg/dL Est Cr Clr Drug Dosing 108.57 mL/min Estimated GFR (MDRD) > 60 (>60) mL/min BUN/Creatinine Ratio 8.6 L (14-18) Glucose 113 H (74-106) mg/dL POC Glucose (70-105) mg/dL Calcium 7.9 L (8.5-10.1) mg/dL Phosphorus 3.1 (2.6-4.7) mg/dL Magnesium 1.8 (1.8-2.4) mg/dl Med Orders - Current: Current Medications Miscellaneous Information (Remove Patch) 0 ea TRDERM DAILY [facility] Last Admin: 01/15/20 11:22 Dose: Not Given Nicotine (Habitrol) 21 mg TRDERM DAILY [facility] Last Admin: 01/15/20 11:21 Dose: Not Given Ondansetron HCl (Zofran) 4 mg IV Q6H PRN PRN Reason: Nausea/Vomiting Discontinued Medications Diatrizoate Meglum/Diatrizoate Sod (Gastrografin 37%) 90 ml PO ONETIME ONE Stop: 01/14/20 04:53 Last Admin: 01/14/20 05:30 Dose: 90 ml Hydromorphone HCl (Dilaudid) 1 mg IVPUSH ONETIME STA Stop: 01/14/20 03:53 Last Admin: 01/14/20 04:06 Dose: 1 mg Sodium Chloride (Normal Saline) 1,000 mls @ 150 mls/hr IV ASDIRECTED [facility] Last Admin: 01/14/20 13:09 Dose: 150 mls/hr Dextrose/Sodium Chloride (Dextrose 5%-1/2 Ns) 1,000 mls @ 100 mls/hr IV ASDIRECTED [facility] Last Admin: 01/15/20 04:49 Dose: 100 mls/hr Iopamidol (Isovue-300 (61%)) 100 ml IVPUSH ONETIME ONE Stop: 01/14/20 04:53 Last Admin: 01/14/20 05:30 Dose: 100 ml Ondansetron HCl (Zofran) 4 mg IVPUSH ONETIME ONE Stop: 01/14/20 03:53 Last Admin: 01/14/20 04:06 Dose: 4 mg - Exam General: Alert, Oriented HEENT: Pupils Equal, Mucous Membr. Moist/[place] Neck: Supple Lungs: Clear to Auscultation, Normal Respiratory Effort Cardiovascular: Regular Rate, Regular Rhythm GI/Abdominal Exam: Normal Bowel Sounds, Soft, Non-Tender Extremities: No Pedal Edema Sepsis Event Note - Evaluation Sepsis Screening Result: No Definite Risk - Focused Exam Vital Signs: Vital Signs Temp Pulse Resp BP BP Pulse Ox 01/15/20 15:04 98.1 F 66 16 159/90 H 99 01/15/20 11:00 154/93 H 01/15/20 10:44 98.1 F 74 16 151/106 H 97 01/15/20 07:39 97.9 F 56 L 16 140/84 96 01/15/20 04:28 98.1 F 66 18 150/73 H 95 Date Exam was Performed: 01/15/20 Time Exam was Performed: 16:23 - Problem List Review Problem List Initiated/Reviewed/Updated: Yes - My Orders Last 24 Hours: My Active Orders 01/15/20 10:59 JESSICA Hose [Antiembolic Hose] [OM.PC] Routine 01/15/20 11:00 Antiembolic Devices [RC] PER UNIT ROUTINE 01/15/20 Lunch Soft Diet [DIET] - Plan Plan:: SBO (small bowel obstruction) History of appendectomy History of exploratory laparotomy Leukocytosis Reports multiple (4 or 5) prior exploratory laparotomies to take down adhesions Reportedly fell on knife in 1981 and has had bowel problems ever since Reports history of bowel resection Began having abdominal pain on 01/13/20 Reports nausea and vomiting on 01/13/20 which stopped today, 01/14/20 Pain is consistent, stabbing, sharp, and getting worse CT in ED shows dilated loops of small bowel suspicious for distal SBO from adhesions and stable findings from prior exam WBC 10.60 - likely 2/2 stress reaction PLAN - Ambulate as tolerated -Advance diet to soft diet today - Dr. Sutton, general surgery, consulted and following - Antiemetics for nausea - Monitor BMs/Emesis - Monitor daily labs - Repeat Abdomen X-ray on 01/15/20 showed contrast into the rectum CAD (coronary artery disease) HLD (hyperlipidemia) HTN (hypertension) History of GA (myocardial infarction) GERD (gastroesophageal reflux disease) BPH (benign prostatic hyperplasia) Arthritis Anxiety Depression Medical non-compliance Multiple medical conditions as above Patient reports he has taken himself off all meds PLAN -Monitor and treat as necessary Hyponatremia Sodium 133 Chart review shows all prior sodium results in 130-134 Stable PLAN -IV fluids as above - Monitor daily labs Smokes tobacco daily Reports 0.8 packs per day Down from 3PPD 45 years of tobacco use PLAN - Nicotine patch - Cessation counseling Alcohol use Reports 5 days of 3 drinks per day ETOH use Reports occasionally drinks to excess PLAN - Monitor need for CIWAA protocol Prophylaxis DVT: SCDs and ambulate - non-pharmacological incase surgery is indicated GI: Not indicated Code status: Full Code PCP: Dr. Quijano Disposition: Admitted to medical floor observation status for SBO. PT/OT consulted. Likely discharge tomorrow if tolerates regular soft foods.
[2020-01-16] MEDS: Magnesium Sulfate/Water 2 GM in Premix Bag 1 BAG IV SCH ×2 (09:14→11:10)
--- NOTE | 2020-01-16 11:05 | PCM.SURGPN ---
- General Info Date of Service: 01/16/20 Functional Status: Reports: Pain Controlled, Tolerating Diet, Ambulating, Urinating - Review of Systems General: Reports: No Symptoms HEENT: Reports: No Symptoms Pulmonary: Reports: No Symptoms Cardiovascular: Reports: No Symptoms Gastrointestinal: Reports: No Symptoms Genitourinary: Reports: No Symptoms Musculoskeletal: Reports: No Symptoms Skin: Reports: No Symptoms - Patient Data Vitals - Most Recent: Last Vital Signs Temp 98.1 F 01/15/20 20:06 Pulse 77 01/15/20 20:06 Resp 14 01/15/20 20:06 BP 144/86 H 01/15/20 20:06 Pulse Ox 96 01/15/20 20:06 Weight - Most Recent: 68.311 kg I&O - Last 24 Hours: Intake & Output 01/15/20 01/16/20 01/16/20 22:59 06:59 14:59 Intake Total 470 400 120 Balance 470 400 120 Lab Results Last 24 Hrs: Laboratory Results - last 24 hr 01/16/20 01/16/20 Range/Units 05:35 05:35 WBC 11.03 H (4.23-9.07) K/mm3 RBC 4.92 (4.63-6.08) M/mm3 Hgb 15.6 (13.7-17.5) gm/dl Hct 46.6 (40.1-51.0) % MCV 94.7 H (79.0-92.2) fl MCH 31.7 (25.7-32.2) pg MCHC 33.5 (32.2-35.5) g/dl RDW Std Deviation 48.6 H (35.1-43.9) fL Plt Count 218 (163-337) K/mm3 MPV 9.0 L (9.4-12.3) fl Neut % (Auto) 77.3 H (34.0-67.9) % Lymph % (Auto) 11.1 L (21.8-53.1) % [place] % (Auto) 9.8 (5.3-12.2) % Eos % (Auto) 1.5 (0.8-7.0) Baso % (Auto) 0.2 (0.1-1.2) % Neut # (Auto) 8.53 H (1.78-5.38) K/mm3 Lymph # (Auto) 1.22 L (1.32-3.57) K/mm3 [place] # (Auto) 1.08 H (0.30-0.82) K/mm3 Eos # (Auto) 0.17 (0.04-0.54) K/mm3 Baso # (Auto) 0.02 (0.01-0.08) K/mm3 Sodium 138 (136-145) mEq/L Potassium 3.9 (3.5-5.1) mEq/L Chloride 104 (98-107) mEq/L Carbon Dioxide 26 (21-32) mEq/L Anion Gap 11.9 (5-15) BUN 8 (7-18) mg/dL Creatinine 0.7 (0.7-1.3) mg/dL Est Cr Clr Drug Dosing 108.43 mL/min Estimated GFR (MDRD) > 60 (>60) mL/min BUN/Creatinine Ratio 11.4 L (14-18) Glucose 96 (74-106) mg/dL Calcium 8.7 (8.5-10.1) mg/dL Magnesium 1.7 L (1.8-2.4) mg/dl Med Orders - Current: Current Medications Magnesium Sulfate 2 gm/ Premix 50 mls @ 25 mls/hr IV Q2H [facility] Stop: 01/16/20 12:59 Last Admin: 01/16/20 09:14 Dose: 25 mls/hr Miscellaneous Information (Remove Patch) 0 ea TRDERM DAILY [facility] Last Admin: 01/15/20 11:22 Dose: Not Given Nicotine (Habitrol) 21 mg TRDERM DAILY [facility] Last Admin: 01/15/20 11:21 Dose: Not Given Ondansetron HCl (Zofran) 4 mg IV Q6H PRN PRN Reason: Nausea/Vomiting Discontinued Medications Diatrizoate Meglum/Diatrizoate Sod (Gastrografin 37%) 90 ml PO ONETIME ONE Stop: 01/14/20 04:53 Last Admin: 01/14/20 05:30 Dose: 90 ml Hydromorphone HCl (Dilaudid) 1 mg IVPUSH ONETIME STA Stop: 01/14/20 03:53 Last Admin: 01/14/20 04:06 Dose: 1 mg Sodium Chloride (Normal Saline) 1,000 mls @ 150 mls/hr IV ASDIRECTED [facility] Last Admin: 01/14/20 13:09 Dose: 150 mls/hr Dextrose/Sodium Chloride (Dextrose 5%-1/2 Ns) 1,000 mls @ 100 mls/hr IV ASDIRECTED [facility] Last Admin: 01/15/20 04:49 Dose: 100 mls/hr Iopamidol (Isovue-300 (61%)) 100 ml IVPUSH ONETIME ONE Stop: 01/14/20 04:53 Last Admin: 01/14/20 05:30 Dose: 100 ml Ondansetron HCl (Zofran) 4 mg IVPUSH ONETIME ONE Stop: 01/14/20 03:53 Last Admin: 01/14/20 04:06 Dose: 4 mg - Exam General: Alert, Oriented, Cooperative, No Acute Distress GI/Abdominal Exam: Normal Bowel Sounds, Soft, Non-Tender, No Organomegaly Sepsis Event Note - Evaluation Sepsis Screening Result: No Definite Risk - Problem List Review Problem List Initiated/Reviewed/Updated: No - My Orders Last 24 Hours: Active Orders 24 hr Category Date Time Status Antiembolic Devices [RC] BID Care 01/15/20 11:00 Active Soft Diet [DIET] Diet 01/15/20 Lunch Active BASIC METABOLIC PANEL,BMP [CHEM] AM Lab 01/17/20 05:11 Ordered BASIC METABOLIC PANEL,BMP [CHEM] AM Lab 01/18/20 05:11 Ordered CBC WITH AUTO DIFF [HEME] AM Lab 01/17/20 05:11 Ordered CBC WITH AUTO DIFF [HEME] AM Lab 01/18/20 05:11 Ordered MAGNESIUM [CHEM] AM Lab 01/17/20 05:11 Ordered MAGNESIUM [CHEM] AM Lab 01/18/20 05:11 Ordered Magnesium Sulfate/Water [Magnesium Sulfate in Water Med 01/16/20 09:00 Active Premix] 2 gm Premix Bag 1 bag IV Q2H [facility] Hose [Antiembolic Hose] [OM.PC] Routine Oth 01/15/20 10:59 Ordered Medication Orders Magnesium Sulfate 2 gm/ Premix 50 mls @ 25 mls/hr IV Q2H [facility] Stop: 01/16/20 12:59 Last Admin: 01/16/20 09:14 Dose: 25 mls/hr Miscellaneous Information (Remove Patch) 0 ea TRDERM DAILY [facility] Last Admin: 01/15/20 11:22 Dose: Not Given Nicotine (Habitrol) 21 mg TRDERM DAILY [facility] Last Admin: 01/15/20 11:21 Dose: Not Given Admin: 01/14/20 12:37 Dose: Not Given Ondansetron HCl (Zofran) 4 mg IV Q6H PRN PRN Reason: Nausea/Vomiting - Plan Plan (Free Text/Narrative):: Patient is HD2 for SBO. Did well with non-operative management. Tolerated diet through the day yesterday. Continued to have flatus and BM. - ok to discharge the patient today on soft diet and advance diet as tolerated at home - I discussed with him that recurrence can occur at any time and is unpredictable. If he has symptoms of nausea, vomiting, abdominal pain and obstipation to come back to the ED for evaluation of possible recurrent SBO. he verbalized understanding.
[2020-01-16] MEDS: Nicotine 21 MG/24 Hr Patch TRDERM SCH (11:10)
[2020-01-16 11:19] VITALS: BP 149/88; PULSE 84
--- NOTE | 2020-01-16 12:02 | PCM.DCSUM1 ---
Discharge Summary - Hospital Course HPI Initial Comments: Glen Canales is a 59-year-old male who presents to ED on 01/14/2020 with recurrent abdominal pain. Patient reports that he has had multiple prior small bowel obstructions and one occurs about every 1 to 3 years. This is been since he reportedly fell on a knife while deer hunting in 1981. Reports he had a 4 5 exploratory ladder laparotomies with lysis of adhesions. Reports he has had a partial bowel resection. He reports abdominal pain started around 10 AM on 01/12. Reports the pain is sharp and stabbing, consistent, and has been getting worse. Denies any recent infectious symptoms, diarrhea, melena, hematemesis, or urinary symptoms. Reports last BM was 01/12/2020 and that was very hard. States he took a stool softener on 01/13/2020 and it has not helped. BP in the ED was elevated at 155/91 but he is afebrile and satting at 99% on room air. Patient does have a history of hypertension and states that he quit taking his medication several months ago. He confirms that he stopped taking them if they were not discontinued by medical provider. Labs are obtained showing mild leukocytosis at 10.60. Hemoglobin is stable at 17.2. Platelets are good at 242,000. Neutrophils are elevated at 92%. There is no bandemia. Sodium is slightly low at 133, however in lab review patient has had chronic hyponatremia. Creatinine 0.7 GFR greater than 60. Liver enzymes are normal. Lipase is low at 40. Leukosis slightly high at 107. He started on 150 mils of NS. He is given Dilaudid for pain and Zofran for nausea. CT of the abdomen and pelvis is obtained interpreted by Dr. Greenfield as "1. Multiple dilated loops of small bowel suspicious for distal small bowel obstruction most likely from adhesion. 2. Other findings within the abdomen which are stable from previous CT and pelvis exam." Patient does report that he was nauseous and had vomited the day prior, however this has resolved. He carries a history of CAD, HLD, HTN, CA x2, GERD, BPH, arthritis, anxiety, depression. He does again confirm that he has stopped taking all medications. He does report 3 coronary angiograms. He has a daily smoker, although he has been weaning down. He does report 5 days week of alcohol use, with 3 drinks a night. His PCP is Dr. Quijano. He subsequently admitted to the medical floor observation status for management of his small bowel obstruction. Diagnosis: Stroke: No - Discharge Data Discharge Date: 01/16/20 Discharge Disposition: Home, Self-Care 01 Condition: Good - Referral to Home Health Primary Care Physician: Maty Quijano MD - Patient Summary/Data Consults: Consultations 01/14/20 11:47 Consult to Physician [CONS] Routine OT Evaluation and Treatment [CONS] Routine PT Evaluation and Treatment [CONS] Routine Hospital Course: Patient was admitted to the hospital for a small bowel obstruction. Patient was made n.p.o. and when his pain improved and he started stooling we advance his diet to soft diet. Patient tolerated that and was discharged without abdominal pain. Dr. Sutton in general surgery was consulted. Patient has had multiple small bowel obstructions in the past including 4-5 prior exploratory laparotomies. This makes it very likely that he will have an occurrence of his small bowel obstruction in the future. We discussed this with the patient and he understands. - Patient Instructions Diet: Usual Diet as Tolerated Activity: As Tolerated Driving: May Drive Today Showering/Bathing: May Shower Other/Special Instructions: Follow-up with primary care next week. - Discharge Plan *PRESCRIPTION DRUG MONITORING PROGRAM REVIEWED*: Not Applicable *COPY OF PRESCRIPTION DRUG MONITORING REPORT IN PATIENT RASHIDA: Not Applicable Home Medications: Home Meds . [No Known Home Meds] 01/14/20 [History] Oxygen Therapy Mode: Room Air Forms: ED Department Discharge Referrals: Maty Quijano MD [Primary Care Provider] - (You will need to call and schedule a follow up apt. with Maty Quijano next week. ) - Discharge Summary/Plan Comment DC Time >30 min.: No Discharge Summary/Plan Comment: Patient will be discharged home in good condition. Follow-up with primary care provider in 7 days. - General Info Date of Service: 01/16/20 Admission Dx/Problem (Free Text: Admission Diagnosis/Problem Admission Diagnosis/Problem Partial bowel obstruction Subjective Update: Patient is without pain. Tolerating diet. Moving bowels. Functional Status: Reports: Pain Controlled - Review of Systems General: Reports: No Symptoms HEENT: Reports: No Symptoms Pulmonary: Reports: No Symptoms Cardiovascular: Reports: No Symptoms Gastrointestinal: Reports: No Symptoms Musculoskeletal: Reports: No Symptoms Skin: Reports: No Symptoms Neurological: Reports: No Symptoms - Patient Data Vitals - Most Recent: Last Vital Signs Temp 98.2 F 01/16/20 09:19 Pulse 84 01/16/20 09:19 Resp 18 01/16/20 09:19 BP 149/88 H 01/16/20 09:19 Pulse Ox 94 L 01/16/20 09:19 Weight - Most Recent: 150 lb 9.6 oz I&O - Last 24 hours: Intake & Output 01/15/20 01/16/20 01/16/20 22:59 06:59 14:59 Intake Total 470 400 120 Balance 470 400 120 Lab Results - Last 24 hrs: Laboratory Results - last 24 hr 01/16/20 01/16/20 Range/Units 05:35 05:35 WBC 11.03 H (4.23-9.07) K/mm3 RBC 4.92 (4.63-6.08) M/mm3 Hgb 15.6 (13.7-17.5) gm/dl Hct 46.6 (40.1-51.0) % MCV 94.7 H (79.0-92.2) fl MCH 31.7 (25.7-32.2) pg MCHC 33.5 (32.2-35.5) g/dl RDW Std Deviation 48.6 H (35.1-43.9) fL Plt Count 218 (163-337) K/mm3 MPV 9.0 L (9.4-12.3) fl Neut % (Auto) 77.3 H (34.0-67.9) % Lymph % (Auto) 11.1 L (21.8-53.1) % [place] % (Auto) 9.8 (5.3-12.2) % Eos % (Auto) 1.5 (0.8-7.0) Baso % (Auto) 0.2 (0.1-1.2) % Neut # (Auto) 8.53 H (1.78-5.38) K/mm3 Lymph # (Auto) 1.22 L (1.32-3.57) K/mm3 [place] # (Auto) 1.08 H (0.30-0.82) K/mm3 Eos # (Auto) 0.17 (0.04-0.54) K/mm3 Baso # (Auto) 0.02 (0.01-0.08) K/mm3 Sodium 138 (136-145) mEq/L Potassium 3.9 (3.5-5.1) mEq/L Chloride 104 (98-107) mEq/L Carbon Dioxide 26 (21-32) mEq/L Anion Gap 11.9 (5-15) BUN 8 (7-18) mg/dL Creatinine 0.7 (0.7-1.3) mg/dL Est Cr Clr Drug Dosing 108.43 mL/min Estimated GFR (MDRD) > 60 (>60) mL/min BUN/Creatinine Ratio 11.4 L (14-18) Glucose 96 (74-106) mg/dL Calcium 8.7 (8.5-10.1) mg/dL Magnesium 1.7 L (1.8-2.4) mg/dl Med Orders - Current: Current Medications Magnesium Sulfate 2 gm/ Premix 50 mls @ 25 mls/hr IV Q2H MIGUEL Stop: 01/16/20 12:59 Last Admin: 01/16/20 11:10 Dose: Not Given Miscellaneous Information (Remove Patch) 0 ea TRDERM DAILY [facility] Last Admin: 01/16/20 11:10 Dose: Not Given Nicotine (Habitrol) 21 mg TRDERM DAILY [facility] Last Admin: 01/16/20 11:10 Dose: Not Given Ondansetron HCl (Zofran) 4 mg IV Q6H PRN PRN Reason: Nausea/Vomiting Discontinued Medications Diatrizoate Meglum/Diatrizoate Sod (Gastrografin 37%) 90 ml PO ONETIME ONE Stop: 01/14/20 04:53 Last Admin: 01/14/20 05:30 Dose: 90 ml Hydromorphone HCl (Dilaudid) 1 mg IVPUSH ONETIME STA Stop: 01/14/20 03:53 Last Admin: 01/14/20 04:06 Dose: 1 mg Sodium Chloride (Normal Saline) 1,000 mls @ 150 mls/hr IV ASDIRECTED [facility] Last Admin: 01/14/20 13:09 Dose: 150 mls/hr Dextrose/Sodium Chloride (Dextrose 5%-1/2 Ns) 1,000 mls @ 100 mls/hr IV ASDIRECTED [facility] Last Admin: 01/15/20 04:49 Dose: 100 mls/hr Iopamidol (Isovue-300 (61%)) 100 ml IVPUSH ONETIME ONE Stop: 01/14/20 04:53 Last Admin: 01/14/20 05:30 Dose: 100 ml Ondansetron HCl (Zofran) 4 mg IVPUSH ONETIME ONE Stop: 01/14/20 03:53 Last Admin: 01/14/20 04:06 Dose: 4 mg - Exam General: Reports: Alert, Oriented HEENT: Reports: Pupils Equal, Mucous Membr. Moist/[place] Neck: Reports: Supple Lungs: Reports: Clear to Auscultation, Normal Respiratory Effort Cardiovascular: Reports: Regular Rate, Regular Rhythm GI/Abdominal Exam: Normal Bowel Sounds, Soft, Non-Tender, No Organomegaly, No Distention, No Abnormal Bruit, No Mass Extremities: Normal Inspection, Normal Range of Motion, Non-Tender, No Pedal Edema Skin: Reports: Warm, Dry, Intact Psy/Mental Status: Reports: Alert, Normal Affect, Normal Mood
--- NOTE | 2020-01-17 07:34 | CR ---
Abdomen: Supine view of the abdomen was obtained. Comparison: Prior CT abdomen and pelvis exam of 01/14/20. Findings: Scattered gas and contrast is noted within the colon. This contrast is from recent CT exam. Scattered gas within nondilated small bowel is noted. No free air is seen. Bony structures are unremarkable. Impression: 1. Contrast within the colon from recent CT study which is a not unexpected. 2. Scattered gas within nondilated small bowel. Diagnostic code #2 This report was dictated in MDT I agree with preliminary report from [facility], finalized on 01/15/20, 9:11 AM Central Time
== END 2020-01-16 12:22 | disposition home or self-care (01) | DRG 389 ==
LOC: JD.ED 02:50 → JD.MS 07:53
PROVIDERS: ADMIT Family Medicine; ATTEND Family Medicine
DX: K56.609 Unspecified intestinal obstruction, unspecified as to partial versus complete obstruction (principal); K56.600 Partial intestinal obstruction, unspecified as to cause; H91.90 Unspecified hearing loss, unspecified ear; E87.1 Hypo-osmolality and hyponatremia; I25.10 Atherosclerotic heart disease of native coronary artery without angina pectoris; E78.5 Hyperlipidemia, unspecified; Z79.899 Other long term (current) drug therapy; I10 Essential (primary) hypertension; F17.200 Nicotine dependence, unspecified, uncomplicated; I25.2 Old myocardial infarction; K21.9 Gastro-esophageal reflux disease without esophagitis; N40.0 Benign prostatic hyperplasia without lower urinary tract symptoms; M19.90 Unspecified osteoarthritis, unspecified site; F41.9 Anxiety disorder, unspecified; F32.9 Major depressive disorder, single episode, unspecified; F17.210 Nicotine dependence, cigarettes, uncomplicated; H54.7 Unspecified visual loss; E78.00 Pure hypercholesterolemia, unspecified; Z88.8 Allergy status to other drugs, medicaments and biological substances; Z87.01 Personal history of pneumonia (recurrent); Z96.611 Presence of right artificial shoulder joint; Z90.49 Acquired absence of other specified parts of digestive tract; Z91.19 Patient's noncompliance with other medical treatment and regimen; Z72.89 Other problems related to lifestyle
CPT/HCPCS: 36415; 74177; 80053; 83690; 85007; 85027; 96361; 96374; 96375; 99285; J1170; J2405; J7030; Q9963; Q9967; 74018; 74018-26; 80048; 82962; 83735; 84100; 85025; 97161-GP; 97165-GO; 99222; 99232; 99238; J3475; J7042

== ENCOUNTER 2021-08-17 20:11 | Emergency (ER) | payer BC, MEDICARE ==
[2021-08-17] MEDS ORDERED: Sodium Chloride 0.9% 1,000 ML IV ONE (21:10)
--- NOTE | 2021-08-17 21:16 | EDM.PDOC ---
ED HPI GENERAL MEDICAL PROBLEM - General Chief Complaint: Neurological Problem Stated Complaint: VOMITING/DIZZY/FALLING Time Seen by Provider: 08/17/21 20:38 Source of Information: Reports: Patient, Family () History Limitations: Reports: Other (Patient looks to his for most answers to questions) - History of Present Illness INITIAL COMMENTS - FREE TEXT/NARRATIVE: Mr. Canales is a very pleasant 60-year-old gentleman who is now brought to the ED by his , who tells me that he has been tremulous and unstable on his lower extremities for several months. She states that he falls a lot. She is also concerned that he sleeps all day, for the past 2 to 3 months. He also had some nausea and vomiting this past Friday. The patient reports that he has had a cough productive of whitish sputum, and some non-bloody diarrhea. He also reports subjective weight loss over the past 6 months. The patient has a number of chronic medical problems, but takes no medications for any of them. He states that he last saw his PCP in December 2019. Here in the ED, the patient's initial BP is found to be slightly elevated at 143/87, with tachycardia of 124 bpm and tachypnea of 24 rpm. He is afebrile, without oxygen saturation of 95% on room air. He appears to be relatively comfortable, in no acute distress. The patient denies having a recent fever, chills, sore throat, ear pain, nasal or sinus congestion, dyspnea, chest pain, palpitations, constipation, abdominal pain, urinary symptoms, recent bloody bowel movements or black bowel movements, recent joint aches, headaches, or rashes. The patient's PCP is Dr. Maty Quijano. He has not received a COVID vaccination. - Related Data Allergies Allergy/AdvReac Type Severity Reaction Status Date / Time hydrochlorothiazide AdvReac Nausea Verified 08/17/21 20:39 Home Meds: Home Meds . [No Known Home Meds] 01/14/20 [History] Past Medical History HEENT History: Reports: Hard of Hearing, Impaired Vision Cardiovascular History: Reports: CAD (untreated), High Cholesterol (untreated), Hypertension (untreated), [place] (by coronary angiogram) Gastrointestinal History: Reports: Bowel Obstruction (recurrent), GERD (untreated) Genitourinary History: Reports: BPH (untreated) Musculoskeletal History: Reports: Osteoarthritis Psychiatric History: Reports: Addiction (alcohol), Anxiety (untreated), Depression (untreated) - Infectious Disease History Infectious Disease History: Reports: Chicken Pox - Past Surgical History Cardiovascular Surgical History: Reports: Other (See Below) (Coronary angiogram x 1) GI Surgical History: Reports: Appendectomy, Lysis of Adhesions (x 4 or 5) Musculoskeletal Surgical History: Reports: Shoulder Surgery (Right, arthroscopic x 3. Right reverse arthroplasty.) Social & Family History - Tobacco Use Tobacco Use Status *Q: Current Every Day Tobacco User Years of Tobacco use: 47 Packs/Tins Daily: 1 Packs/Tins Daily Comment: Down from 3 ppd Tobacco Use Comment: Started smoking 1973 - Caffeine Use Caffeine Use: Reports: None - Alcohol Use Alcohol Use History: Yes Days Per Week of Alcohol Use: 7 Number of Drinks Per Day: 9 Total Drinks Per Week: 63 Alcohol Use Frequency: Daily - Recreational Drug Use Recreational Drug Use: Yes Drug Use in Last 12 Months: No Recreational Drug Type: Reports: Marijuana/Hashish (last smoked ) - Living Situation & Occupation Living situation: Reports: , with Spouse, with Family (Daughter) Occupation: Unemployed ED ROS GENERAL - Review of Systems Review Of Systems: Comprehensive ROS is negative, except as noted in HPI. ED EXAM, GENERAL - Physical Exam Exam: See Below Exam Limited By: No Limitations General Appearance: Alert, No Apparent Distress, Thin, Other (Disheveled) Eye Exam: Bilateral Eye: EOMI, Normal Inspection Ears: Normal External Exam, Hearing Grossly Normal Nose: Normal Inspection Throat/Mouth: Normal Inspection, Normal Lips, Normal Voice, No Airway Compromise Head: Atraumatic, Normocephalic Neck: Normal Inspection, Full Range of Motion Respiratory/Chest: No Respiratory Distress, Lungs Clear, Normal Breath Sounds, No Accessory Muscle Use Cardiovascular: Normal Peripheral Pulses, Regular Rate, Rhythm, No Edema, No Gallop, No JVD, No Murmur, No Rub Peripheral Pulses: 3+: Radial (L), Radial (R) GI/Abdominal: Normal Bowel Sounds, Soft, Non-Tender, No Organomegaly, No Distention, No Abnormal Bruit, No Mass Back Exam: Normal Inspection, Full Range of Motion, NT Extremities: Normal Inspection, Normal Range of Motion, No Pedal Edema, Normal Capillary Refill Neurological: Alert, Oriented, CN II-XII Intact, No Motor/Sensory Deficits Psychiatric: Normal Affect Skin Exam: Warm, Dry, Intact, No Rash #1 Interpretation EKG Date: 08/17/21 Time: 21:42 Rhythm: Other (Sinus tachycardia) Rate (Beats/Min): 103 Spalding: 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) P-Wave: Enlarged (LAE) QRS: Other (Late transition) ST-T: Normal QT: Prolonged (QTc 479 ms) Comparison: No Change (04/20/2016) Course - Vital Signs Last Recorded V/S: Last Vital Signs Temp 37.6 C 08/17/21 23:00 Pulse 106 H 08/17/21 23:00 Resp 23 H 08/17/21 23:00 BP 132/72 08/17/21 23:00 Pulse Ox 94 L 08/17/21 23:00 Orthostatic Blood Pressure [ 114/61 Standing] Orthostatic Blood Pressure [ 121/77 Sitting] Orthostatic Blood Pressure [ 116/69 Supine] - Orders/Labs/Meds Orders: Active Orders 24 hr Category Date Time Status Orthostatic Vital Signs [RC] STAT Care 08/17/21 21:07 Active Chest 2V [CR] Stat Exams 08/17/21 21:05 Taken Head wo Cont [CT] Stat Exams 08/17/21 21:05 Taken BLOOD CULTURE [MREF] Stat Lab 08/17/21 21:15 Received BLOOD CULTURE [MREF] Stat Lab 08/17/21 21:30 Received Blood Culture x2 Reflex Set [OM.PC] Stat Oth 08/17/21 21:09 Ordered Labs: Laboratory Tests 08/17/21 08/17/21 08/17/21 Range/Units 21:10 21:10 21:10 WBC 5.98 (4.23-9.07) K/mm3 RBC 5.15 (4.63-6.08) M/mm3 Hgb 17.5 D (13.7-17.5) gm/dl Hct 50.5 (40.1-51.0) % MCV 98.1 H D (79.0-92.2) fl MCH 34.0 H (25.7-32.2) pg MCHC 34.7 (32.2-35.5) g/dl RDW Std Deviation 47.5 H (35.1-43.9) fL Plt Count 155 L (163-337) K/mm3 MPV 9.4 (9.4-12.3) fl Neutrophils % (Manual) 74 H (40-60) % Band Neutrophils % 0 (0-10) % Lymphocytes % (Manual) 16 L (20-40) % Atypical Lymphs % 1 % Monocytes % (Manual) 9 (2-10) % Eosinophils % (Manual) 0 L (0.8-7.0) % Basophils % (Manual) 0 L (0.2-1.2) Platelet Estimate Adequate RBC Morph Comment Normal PT 9.8 (9.7-12.0) SECONDS INR < 0.93 APTT 30.5 (21.7-31.4) SECONDS D-Dimer, Quantitative 0.47 (0.19-0.50) mg/L Sodium 132 L (136-145) mEq/L Potassium 3.4 L (3.5-5.1) mEq/L Chloride 95 L (98-107) mEq/L Carbon Dioxide 27 (21-32) mEq/L Anion Gap 13.4 (5-15) BUN 2 L (7-18) mg/dL Creatinine 0.7 (0.7-1.3) mg/dL Est Cr Clr Drug Dosing 99.54 mL/min Estimated GFR (MDRD) > 60 (>60) mL/min BUN/Creatinine Ratio 2.9 L (14-18) Glucose 90 (70-99) mg/dL Lactic Acid (0.4-2.0) mmol/L Calcium 8.0 L (8.5-10.1) mg/dL Magnesium 1.7 L (1.8-2.4) mg/dL Total Bilirubin 0.3 (0.2-1.0) mg/dL AST 104 H (15-37) U/L ALT 52 (16-63) U/L Alkaline Phosphatase 127 H (46-116) U/L Troponin I < 0.017 (0.00-0.056) ng/mL C-Reactive Protein 0.3 (<1.0) mg/dL NT-Pro-B Natriuret Pep (0-125) pg/mL Total Protein 6.5 (6.4-8.2) g/dl Albumin 2.7 L (3.4-5.0) g/dl Globulin 3.8 gm/dL Albumin/Globulin Ratio 0.7 L (1-2) TSH 3rd Generation 1.220 (0.358-3.74) uIU/mL Urine Color (Yellow) Urine Appearance (Clear) Urine pH (5.0-8.0) Ur Specific [place] (1.005-1.030) Urine Protein (Negative) Urine Glucose (UA) (Negative) Urine Ketones (Negative) Urine Occult Blood (Negative) Urine Nitrite (Negative) Urine Bilirubin (Negative) Urine Urobilinogen (0.2-1.0) Ur Leukocyte Esterase (Negative) Urine RBC (0-5) /hpf Urine WBC (0-5) /hpf Ur Epithelial Cells (0-5) /hpf Urine Bacteria (FEW) /hpf Urine Mucus (FEW) /hpf Ethyl Alcohol 0.01 (0.00) gm% Influenza Type A RNA (NEGATIVE) Influenza Type B RNA (NEGATIVE) SARS-CoV-2 RNA (JUSTINE) (NEGATIVE) 08/17/21 08/17/21 08/17/21 Range/Units 21:10 21:17 21:22 WBC (4.23-9.07) K/mm3 RBC (4.63-6.08) M/mm3 Hgb (13.7-17.5) gm/dl Hct (40.1-51.0) % MCV (79.0-92.2) fl MCH (25.7-32.2) pg MCHC (32.2-35.5) g/dl RDW Std Deviation (35.1-43.9) fL Plt Count (163-337) K/mm3 MPV (9.4-12.3) fl Neutrophils % (Manual) (40-60) % Band Neutrophils % (0-10) % Lymphocytes % (Manual) (20-40) % Atypical Lymphs % % Monocytes % (Manual) (2-10) % Eosinophils % (Manual) (0.8-7.0) % Basophils % (Manual) (0.2-1.2) Platelet Estimate RBC Morph Comment PT (9.7-12.0) SECONDS INR APTT (21.7-31.4) SECONDS D-Dimer, Quantitative (0.19-0.50) mg/L Sodium (136-145) mEq/L Potassium (3.5-5.1) mEq/L Chloride (98-107) mEq/L Carbon Dioxide (21-32) mEq/L Anion Gap (5-15) BUN (7-18) mg/dL Creatinine (0.7-1.3) mg/dL Est Cr Clr Drug Dosing mL/min Estimated GFR (MDRD) (>60) mL/min BUN/Creatinine Ratio (14-18) Glucose (70-99) mg/dL Lactic Acid (0.4-2.0) mmol/L Calcium (8.5-10.1) mg/dL Magnesium (1.8-2.4) mg/dL Total Bilirubin (0.2-1.0) mg/dL AST (15-37) U/L ALT (16-63) U/L Alkaline Phosphatase (46-116) U/L Troponin I (0.00-0.056) ng/mL C-Reactive Protein (<1.0) mg/dL NT-Pro-B Natriuret Pep 370 H (0-125) pg/mL Total Protein (6.4-8.2) g/dl Albumin (3.4-5.0) g/dl Globulin gm/dL Albumin/Globulin Ratio (1-2) TSH 3rd Generation (0.358-3.74) uIU/mL Urine Color Yellow (Yellow) Urine Appearance Clear (Clear) Urine pH 6.5 (5.0-8.0) Ur Specific [place] 1.015 (1.005-1.030) Urine Protein Negative (Negative) Urine Glucose (UA) Negative (Negative) Urine Ketones Negative (Negative) Urine Occult Blood Negative (Negative) Urine Nitrite Negative (Negative) Urine Bilirubin Negative (Negative) Urine Urobilinogen 0.2 (0.2-1.0) Ur Leukocyte Esterase Negative (Negative) Urine RBC 0-5 (0-5) /hpf Urine WBC 0-5 (0-5) /hpf Ur Epithelial Cells Not seen (0-5) /hpf Urine Bacteria Few (FEW) /hpf Urine Mucus Few (FEW) /hpf Ethyl Alcohol (0.00) gm% Influenza Type A RNA Negative (NEGATIVE) Influenza Type B RNA Negative (NEGATIVE) SARS-CoV-2 RNA (JUSTINE) Negative (NEGATIVE) 08/17/21 Range/Units 21:30 WBC (4.23-9.07) K/mm3 RBC (4.63-6.08) M/mm3 Hgb (13.7-17.5) gm/dl Hct (40.1-51.0) % MCV (79.0-92.2) fl MCH (25.7-32.2) pg MCHC (32.2-35.5) g/dl RDW Std Deviation (35.1-43.9) fL Plt Count (163-337) K/mm3 MPV (9.4-12.3) fl Neutrophils % (Manual) (40-60) % Band Neutrophils % (0-10) % Lymphocytes % (Manual) (20-40) % Atypical Lymphs % % Monocytes % (Manual) (2-10) % Eosinophils % (Manual) (0.8-7.0) % Basophils % (Manual) (0.2-1.2) Platelet Estimate RBC Morph Comment PT (9.7-12.0) SECONDS INR APTT (21.7-31.4) SECONDS D-Dimer, Quantitative (0.19-0.50) mg/L Sodium (136-145) mEq/L Potassium (3.5-5.1) mEq/L Chloride (98-107) mEq/L Carbon Dioxide (21-32) mEq/L Anion Gap (5-15) BUN (7-18) mg/dL Creatinine (0.7-1.3) mg/dL Est Cr Clr Drug Dosing mL/min Estimated GFR (MDRD) (>60) mL/min BUN/Creatinine Ratio (14-18) Glucose (70-99) mg/dL Lactic Acid 2.0 (0.4-2.0) mmol/L Calcium (8.5-10.1) mg/dL Magnesium (1.8-2.4) mg/dL Total Bilirubin (0.2-1.0) mg/dL AST (15-37) U/L ALT (16-63) U/L Alkaline Phosphatase (46-116) U/L Troponin I (0.00-0.056) ng/mL C-Reactive Protein (<1.0) mg/dL NT-Pro-B Natriuret Pep (0-125) pg/mL Total Protein (6.4-8.2) g/dl Albumin (3.4-5.0) g/dl Globulin gm/dL Albumin/Globulin Ratio (1-2) TSH 3rd Generation (0.358-3.74) uIU/mL Urine Color (Yellow) Urine Appearance (Clear) Urine pH (5.0-8.0) Ur Specific [place] (1.005-1.030) Urine Protein (Negative) Urine Glucose (UA) (Negative) Urine Ketones (Negative) Urine Occult Blood (Negative) Urine Nitrite (Negative) Urine Bilirubin (Negative) Urine Urobilinogen (0.2-1.0) Ur Leukocyte Esterase (Negative) Urine RBC (0-5) /hpf Urine WBC (0-5) /hpf Ur Epithelial Cells (0-5) /hpf Urine Bacteria (FEW) /hpf Urine Mucus (FEW) /hpf Ethyl Alcohol (0.00) gm% Influenza Type A RNA (NEGATIVE) Influenza Type B RNA (NEGATIVE) SARS-CoV-2 RNA (JUSTINE) (NEGATIVE) Meds: Medications Discontinued Medications Generic Name Dose Route Start Last Admin Trade Name Freq PRN Reason Stop Dose Admin Sodium Chloride 1,000 mls @ 999 mls/hr 08/17/21 21:10 08/17/21 21:36 Normal Saline IV 08/17/21 22:10 999 mls/hr ONETIME ONE Administration - Re-Assessments/Exams Free Text/Narrative Re-Assessment/Exam: 08/17/21 21:11 The patient's is concerned that the patient suffered a stroke. While the patient is generally weak and tremulous, I find no focal neurologic deficits, therefore my suspicion for a stroke is low. I suspect that his issues are primarily metabolic. I have ordered an extensive work-up that includes orthostatics, numerous blood tests, 2 sets of blood cultures, a urinalysis, a swab for the SARS-CoV-2 virus and influenza A + B viruses, a chest x-ray, a CT of the head without contrast, and an ECG. In the meantime, the patient will be given a bolus of IV fluid. 08/17/21 22:07 Two-view chest radiograph appears to be grossly normal. The cardiac silhouette is within normal limits. No pulmonary vascular congestion. No pleural effusions. No focal infiltrate. No pneumothorax. Right shoulder reverse arthroplasty noted. Formal read per the Radiologist pending. 08/17/21 22:47 CT of the head without contrast is read by [facility] as "No acute intracranial abnormality." 08/17/21 23:03 The patient is not orthostatic. His CBC is remarkable for thrombocytopenia of 155,000, and is otherwise unremarkable. His CMP is remarkable for mild hyponatremia of 132 and slight hypokalemia of 3.4. His AST is mildly elevated at 104, with an ALT normal at 52, and his alkaline phosphatase mildly elevated at 127, with remainder of his CMP being unremarkable. His magnesium level is slightly depressed at 1.7. His lactic acid level is within normal limits at 2.0. His CRP is within normal limits at 0.3. His TSH is within normal limits at 1.220. His troponin is undetectably low. His pro-BNP is mildly elevated at 370. His D-dimer is within normal limits at 0.47. His coags are within normal limits. His EtOH level is slightly elevated at 0.01. His urinalysis is unremarkable. His swab for the SARS-CoV-2 virus is negative. His swab for influenza A + B viruses is negative. 08/17/21 23:21 Test results discussed with the patient and his . Obviously, the patient is deconditioned, but I did not find any specific medical abnormalities that require admission to the hospital, therefore I will discharge him home. I recommended that the patient stop drinking alcohol. I clarified how much he drinks. He said that lately, he has been drinking 3 beers a day, but is shook her head. She stated that he will purchase a 12-pack of 16 ounce beers, and that he will go through that in a couple of days. He stated that he has never been to [facility]. I will discharge him home with the recommendation that he follow-up at [facility], and with Dr. Quijano. Departure - Departure Time of Disposition: 23:22 Disposition: Home, Self-Care 01 Condition: Good Clinical Impression: Alcohol dependence, daily use, Physical deconditioning - Discharge Information *PRESCRIPTION DRUG MONITORING PROGRAM REVIEWED*: Not Applicable *COPY OF PRESCRIPTION DRUG MONITORING REPORT IN PATIENT RASHIDA: Not Applicable Referrals: Maty Quijano MD [Primary Care Provider] - Forms: ED Department Discharge Additional Instructions: You were seen in the emergency room for progressively worsening fatigue, shakiness, and instability, with falls, along with nausea and vomiting. Work-up in the ER included positional blood pressure checks, numerous blood t ests, 2 sets of blood cultures, a urinalysis, a swab for the SARS-CoV-2 virus and influenza A + B viruses, a chest x-ray, a CT of your head, and an ECG. Your entire work-up was unremarkable. Based on your history, physical exam, and ER tests, you appear to be deconditioned, primarily due to longstanding alcoholism. We strongly recommend that you stop drinking altogether. We recommend that you follow-up at [facility] to get professional help in order to stop drinkin [address] [phone] We recommend that you follow-up with your PCP, Dr. Maty Quijano, at the next available appointment. If any other problems, please do not hesitate to return to the ER. Sepsis Event Note (ED) - Evaluation Sepsis Screening Result: Possible Sepsis Risk - Focused Exam Vital Signs: Vital Signs Temp Pulse Resp BP BP Pulse Ox 08/17/21 23:00 37.6 C 106 H 23 H 132/72 94 L 08/17/21 20:32 37.9 C 124 H 24 H 143/87 H 128 H - My Orders Last 24 Hours: My Active Orders 08/17/21 21:05 Chest 2V [CR] Stat Head wo Cont [CT] Stat 08/17/21 21:07 Orthostatic Vital Signs [RC] STAT 08/17/21 21:09 Blood Culture x2 Reflex Set [OM.PC] Stat 08/17/21 21:15 BLOOD CULTURE [MREF] Stat 08/17/21 21:30 BLOOD CULTURE [MREF] Stat - Assessment/Plan Last 24 Hours: My Active Orders 08/17/21 21:05 Chest 2V [CR] Stat Head wo Cont [CT] Stat 08/17/21 21:07 Orthostatic Vital Signs [RC] STAT 08/17/21 21:09 Blood Culture x2 Reflex Set [OM.PC] Stat 08/17/21 21:15 BLOOD CULTURE [MREF] Stat 08/17/21 21:30 BLOOD CULTURE [MREF] Stat
[2021-08-17 22:06] LABS: CORONAVIRUS COVID-19 NAA NEGATIVE (NEGATIVE)
[2021-08-17 23:17] VITALS: BP 132/72; PULSE 106
--- NOTE | 2021-08-18 07:37 | CR ---
Chest: PA and lateral views of the chest were obtained. Comparison: Prior chest x-ray of 02/06/14. Heart size and mediastinum are within normal limits. Slight chronic pleural thickening is seen within the left lateral costophrenic angle. Mild parenchymal density is noted within the left midlung possibly due to small area of pneumonia. Right lung is felt to be clear. Right shoulder prosthesis is noted. No acute osseous abnormality is appreciated. Small portion of the posterior left eighth rib is missing presumably postsurgical, please correlate. Impression: 1. Mild increased density within the left midlung suspicious for area of pneumonia. 2. Other findings believed to be chronic as noted above. Diagnostic code #3
--- NOTE | 2021-08-18 07:58 | CT ---
Head CT Technique: Multiple axial sections through the brain were obtained. Intravenous contrast was not utilized. Reconstructed coronal and sagittal images were obtained. Comparison: No prior intracranial imaging is available. Findings: Ventricles along with basal cisterns and sulci over the convexities are mildly prominent. Minimal diminished density is noted within portions of the periventricular white matter most likely representing slight small vessel ischemic demyelination change. 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 No other abnormal parenchymal densities are seen. No evidence of intracranial hemorrhage is seen. No midline shift or mass-effect is appreciated. Slight atherosclerotic calcification is seen within the left carotid siphon. Visualized paranasal sinuses and mastoid sinuses show nothing acute. No acute calvarial abnormality is appreciated. Impression: 1. Mild senescent change as noted above. 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 2. Nothing acute is appreciated on noncontrast head CT exam. If patient has sufficient symptoms please consider MRI. Diagnostic code #2 I agree with preliminary report from [facility], finalized on 08/17/21, 11:35 PM CDT, code 1
== END 2021-08-17 23:45 | disposition home or self-care (01) ==
LOC: JD.ED 20:11
DX: F10.20 Alcohol dependence, uncomplicated (principal); I10 Essential (primary) hypertension; I25.2 Old myocardial infarction; R00.0 Tachycardia, unspecified; E87.1 Hypo-osmolality and hyponatremia; R74.01 Elevation of levels of liver transaminase levels; F17.210 Nicotine dependence, cigarettes, uncomplicated; Y90.0 Blood alcohol level of less than 20 mg/100 ml; Z88.8 Allergy status to other drugs, medicaments and biological substances; Z20.822 Contact with and (suspected) exposure to COVID-19
CPT/HCPCS: 0240U; 36415; 70450; 71046; 80053; 80307; 81001; 83605; 83735; 83880; 84443; 84484; 85007; 85027; 85379; 85610; 85730; 86140; 87040; 93005; 99284; J7030

== ENCOUNTER 2021-08-20 11:17 | Emergency (ER) | payer BC ==
[2021-08-20 11:23] VITALS: BP 140/80; PULSE 109
--- NOTE | 2021-08-20 12:43 | EDM.PDOC ---
ED HPI GENERAL MEDICAL PROBLEM - General Chief Complaint: General Stated Complaint: SERENA AMB Time Seen by Provider: 08/20/21 12:25 Source of Information: Reports: Patient, Family () History Limitations: Reports: No Limitations - History of Present Illness INITIAL COMMENTS - FREE TEXT/NARRATIVE: Mr Canales is a pleasant 60-year-old gentleman who, medical records indicate, was seen by me in this ED this past 08/17/2021 for complaint at that time for being tremulous and unstable on his lower extremities for several months, with frequent falls. He had been sleeping all day for the past 2 to 3 months, and had had some nausea and vomiting since 08/15/2021. He also reported having a cough productive of whitish sputum, and some non-bloody diarrhea. He also reported a subjective weight loss over the past 6 months. It was noted that he has numerous chronic medical problems, but took no medications for any of them. He had also reported that he had not seen his PCP since December 2019. He acknowledged that he is a chronic daily alcoholic, typically drinking six 16-oz beers per day, but having recently cut down to 3 per day. His blood pressure was found to be slightly elevated at 143/87, with a tachycardia of 124 bpm and tachypnea of 24 rpm. He was afebrile, with an oxygen saturation of 95% on room air. His physical and neurologic exams were unremarkable. Work-up included a CBC, CMP, magnesium level, lactic acid level, CRP, TSH level, troponin, pro-BNP, D-dimer, coags, EtOH level, 2 sets of blood cultures, a urinalysis, a swab for the SARS-CoV-2 virus and influenza A + B viruses, a chest x-ray, CT of the head without contrast, and an ECG. His work-up was strikingly unremarkable. He was felt to be deconditioned due to alcoholism. I discharged him to home with the recommendation that he stop drinking, follow-up at [facility], and with his PCP. The patient is now brought back to the ED by EMS after his legs gave out while he was walking back from a local convenience store, falling on the sidewalk, around 1130 this morning. He suffered abrasions to the left side of his face and the dorsal aspect of his right hand. There was no loss of consciousness. A bystander called EMS. Here in the ED today, the patient was initially found to be tachycardic at 109 bpm, otherwise, he is hemodynamically stable, afebrile, saturating 95% on room air. The patient reports that since he was discharged on 08/17/2021, he has decreased his alcohol intake to 1/2 a 16 ounce can of beer in the morning, and the other half in the evening. He has not contacted [facility] or his PCPs office. The patient's PCP is Dr. Maty Quijano. He has not received a COVID vaccination. - Related Data Allergies Allergy/AdvReac Type Severity Reaction Status Date / Time hydrochlorothiazide AdvReac Nausea Verified 08/20/21 11:23 Home Meds: Home Meds . [No Known Home Meds] 01/14/20 [History] Past Medical History HEENT History: Reports: Hard of Hearing, Impaired Vision Cardiovascular History: Reports: CAD (untreated), High Cholesterol (untreated), Hypertension (untreated), [place] (by coronary angiogram) Gastrointestinal History: Reports: Bowel Obstruction (recurrent), GERD (untreated) Genitourinary History: Reports: BPH (untreated) Musculoskeletal History: Reports: Osteoarthritis Psychiatric History: Reports: Addiction (alcohol), Anxiety (untreated), Depression (untreated) - Infectious Disease History Infectious Disease History: Reports: Chicken Pox - Past Surgical History Cardiovascular Surgical History: Reports: Other (See Below) (Coronary angiogram x 1) GI Surgical History: Reports: Appendectomy, Lysis of Adhesions (x 4 or 5) Musculoskeletal Surgical History: Reports: Shoulder Surgery (Right, arthroscopic x 3. Right reverse arthroplasty.) Social & Family History - Tobacco Use Tobacco Use Status *Q: Current Some Day Tobacco User Years of Tobacco use: 47 Packs/Tins Daily: 1 Packs/Tins Daily Comment: Down from 3 ppd Tobacco Use Comment: Started smoking 1973 - Caffeine Use Caffeine Use: Reports: None - Alcohol Use Alcohol Use History: Yes Days Per Week of Alcohol Use: 7 Number of Drinks Per Day: 9 Total Drinks Per Week: 63 Alcohol Use Frequency: Daily - Recreational Drug Use Recreational Drug Use: Yes Drug Use in Last 12 Months: No Recreational Drug Type: Reports: Marijuana/Hashish (last smoked ) - Living Situation & Occupation Living situation: Reports: , with Spouse, with Family (Daughter) Occupation: Unemployed ED ROS GENERAL - Review of Systems Review Of Systems: Comprehensive ROS is negative, except as noted in HPI. ED EXAM, GENERAL - Physical Exam Exam: See Below Exam Limited By: No Limitations General Appearance: Alert, WD/WN, No Apparent Distress Eye Exam: Bilateral Eye: EOMI, Normal Inspection Ears: Normal External Exam, Normal Canal, Hearing Grossly Normal, Normal TMs Nose: Normal Inspection, Normal Mucosa, No Blood Throat/Mouth: Normal Inspection, Normal Lips, Normal Gums, Normal Oropharynx, Normal Voice, No Airway Compromise, Other (Poor dentition) Head: Normocephalic, Other (Abrasion over the left eyebrow and to the left chin. Contusion to the left zygomatic area.) Neck: Normal Inspection, Supple, Non-Tender, Full Range of Motion Respiratory/Chest: No Respiratory Distress, Lungs Clear, Normal Breath Sounds, No Accessory Muscle Use Cardiovascular: Normal Peripheral Pulses, Regular Rate, Rhythm, No Edema, No Gallop, No JVD, No Murmur, No Rub Peripheral Pulses: 3+: Radial (L), Radial (R) GI/Abdominal: Normal Bowel Sounds, Soft, Non-Tender, No Organomegaly, No Distention, No Abnormal Bruit, No Mass Back Exam: Normal Inspection, Full Range of Motion, NT Extremities: Normal Range of Motion, No Pedal Edema, Normal Capillary Refill, Other (Small skin tear over the dorsal aspect of the 2nd metacarpal bone) Neurological: Alert, Oriented, Normal Cognition, No Motor/Sensory Deficits Psychiatric: Normal Affect Skin Exam: Warm, Dry, Intact, Normal Color, No Rash Course - Vital Signs Last Recorded V/S: Last Vital Signs Temp 37.3 C 08/20/21 11:21 Pulse 109 H 08/20/21 11:21 Resp 18 08/20/21 11:21 BP 140/80 08/20/21 11:21 Pulse Ox 95 08/20/21 11:21 - Re-Assessments/Exams Free Text/Narrative Re-Assessment/Exam: 08/20/21 12:38 With respect to the patient's unsteadiness and falling, he was seen by me 3 days ago, and underwent an extensive work-up, all of which was unremarkable. I con cluded that he is deconditioned due to alcoholism, and recommended that he stop drinking, and follow-up with [facility] and his PCP, Dr. Maty Quijano. He states that he has cut down his drinking, now to one 16-ounce cans per day, but he has not stopped altogether. He has not yet attempted to contact either [facility] or Dr. Quijano. I encouraged him to do that today. With respect to the abrasions on his face into the dorsal aspect of his right hand, the one just over his left eyebrow should be kept clean with ordinary soap and water, then have a thin smear of bacitracin ointment applied, followed by a Band-Aid. His left cheek is more of a contusion than an abrasion. There is a small abrasion to the left side of his chin, which should also be kept clean with a thin smear of bacitracin, although because of his petty, he would not be able to put a Band-Aid on it. On the dorsal aspect of his right hand, he has a small skin tear that cannot be sutured. That should also be treated like an abrasion with being kept clean, bacitracin ointment, and a Band-Aid. Departure - Departure Time of Disposition: 12:42 Disposition: Home, Self-Care 01 Condition: Good Clinical Impression: Alcohol dependence, daily use, Physical deconditioning, Facial abrasion, Skin tear of right hand without complication - Discharge Information *PRESCRIPTION DRUG MONITORING PROGRAM REVIEWED*: Not Applicable *COPY OF PRESCRIPTION DRUG MONITORING REPORT IN PATIENT RASHIDA: Not Applicable Instructions: Alcohol Abuse and Dependence Information, Adult Referrals: Maty Quijano MD [Primary Care Provider] - Forms: ED Department Discharge Additional Instructions: You were seen in the emergency room after your legs gave out while walking on a sidewalk, causing you to fall and abrade the left side of your face and the back of your right hand. Keep the abrasions clean with ordinary soap and water when you bathe. Pat dry, then apply a thin smear of bacitracin antibiotic ointment. We recommend that you further apply a Band-Aid to the abrasion above your left eyebrow, and to the back of your right hand, daily. You may take [id number] Tylenol or ibuprofen as needed for discomfort. As previously discussed, we recommend that you stop drinking alcohol altogether. We recommend that you follow-up at [facility] to get professional help in order to stop drinkin [address] [place] [phone] We recommend that you follow-up with your PCP, Dr. Maty Quijano, at the next available appointment. If any other problems, please do not hesitate to return to the ER. Sepsis Event Note (ED) - Evaluation Sepsis Screening Result: No Definite Risk - Focused Exam Vital Signs: Vital Signs Temp Pulse Resp BP Pulse Ox 08/20/21 11:21 37.3 C 109 H 18 140/80 95
== END 2021-08-20 13:21 | disposition home or self-care (01) ==
LOC: JD.ED 11:17
DX: S61.411A Laceration without foreign body of right hand, initial encounter (principal); S00.83XA Contusion of other part of head, initial encounter; F10.20 Alcohol dependence, uncomplicated; E78.00 Pure hypercholesterolemia, unspecified; I10 Essential (primary) hypertension; I25.10 Atherosclerotic heart disease of native coronary artery without angina pectoris; Z88.8 Allergy status to other drugs, medicaments and biological substances; Z72.0 Tobacco use; W10.1XXA Fall (on)(from) sidewalk curb, initial encounter; Y92.480 Sidewalk as the place of occurrence of the external cause
CPT/HCPCS: 99284

== ENCOUNTER 2021-08-27 22:20 | Emergency (ER) | payer BC ==
--- NOTE | 2021-08-27 23:10 | EDM.PDOC ---
<Roberth Morrison - Last Filed: 08/28/21 21:23> ED HPI GENERAL MEDICAL PROBLEM - General Chief Complaint: Behavioral/Psych Stated Complaint: HALLUCINATIONS Time Seen by Provider: 08/27/21 22:34 - Related Data Allergies Allergy/AdvReac Type Severity Reaction Status Date / Time hydrochlorothiazide AdvReac Nausea Verified 08/20/21 11:23 Home Meds: Home Meds Cefdinir 300 mg PO BID 08/28/21 [History] Ondansetron [Zofran ODT] 4 mg PO TID PRN 08/28/21 [History] predniSONE [Prednisone] 20 mg PO BID 08/28/21 [History] Course - Re-Assessments/Exams Free Text/Narrative Re-Assessment/Exam: 08/28/21 21:[address] Ravi. Vandana our social insurance administrator came to see the patient. She called both [facility] and [facility]. I talked with [facility] and they could not take him. She got no a few waiting lists. I added a CT of his head because he was sleeping so much. The CT of his head shows mild atrophy with small old infarct within the left temporal region. There were still no beds. My nurse called [facility] and they will come to evaluated him and see if they can help him. Departure - Departure Disposition: DC/Tfer to Psych Hosp/Unit 65 Clinical Impression: Alcohol dependence, daily use, Alcohol withdrawal, COVID-19, Hyponatremia - Discharge Information Referrals: Elvia Chandra NP [Primary Care Provider] - Forms: ED Department Discharge <Brain Ravi - Last Filed: 08/28/21 23:03> ED HPI GENERAL MEDICAL PROBLEM - General Source of Information: Reports: Patient, Family (), Old Records (ED visits 08/17/2021, 08/20/2021) History Limitations: Reports: No Limitations - History of Present Illness INITIAL COMMENTS - FREE TEXT/NARRATIVE: Medical records indicate that the patient was seen by me in this ED on 08/17/2021 with a complaint at that time of tremulousness and instability on his lower extremities for several months. His reported that the patient fell a lot. She was concerned that he had been sleeping all day for 2 to 3 months. He had had some recent nausea and vomiting. He reported having a cough productive of whitish sputum and some nonbloody diarrhea. He also reported a subjective weight loss over the past 6 months. It was noted that he had numerous medical problems, all untreated. He was found to be tachycardic and slightly tachypneic, although afebrile with an oxygen saturation of 95% on room air. He was not orthostatic. His physical exam was grossly unremarkable. Work-up included a CBC, CMP, a magnesium level, a lactic acid level, a TSH level, a CRP, a troponin, a pro-BNP, a D-dimer, coags, an EtOH level, 2 sets of blood cultures, a swab for the SARS-CoV-2 virus and influenza A + B viruses, a urinalysis, a chest x-ray, a CT of the head without contrast, and an ECG. His entire work-up was surprisingly unremarkable. He was felt to be physically deconditioned due to his chronic daily alcoholism. It was recommended that he stop drinking and follow-up with [facility] and his PCP. The patient then returned to this ED on 08/20/2021, after his legs gave out while he was walking back from a local convenience store, falling on the sidewalk and suffering abrasions to the left side of his face and to the dorsal aspect of his right hand. There was no loss of consciousness. He reported that he had decreased his alcohol intake, but had not stopped altogether. He had not followed up with [facility] or his PCP. The abrasions required only cleaning, a thin smear of antibiotic ointment, and a Band-Aid. No sutures were needed. The patient is now brought back to the ED by his due to erratic behavior and likely visual hallucinations. She states that around 01:00 this morning he told her that they were not in their house, and he could not find the garage or the staircase. He did not recognize either his or daughter. He stated that there were women in the house, that were not actually there. The patient's does not feel that she can continue to manage him at home. The patient's tells me that his usual PCP terminated service with the patient, but he saw a new PCP this past 08/24/2021. She states that he had a temperature of 100.9 at her office. She states that no tests were performed, but that his new PCP reviewed his paperwork from his visits here, and determined that he had pneumonia. He was prescribed Zofran, prednisone 20 mg BID, and cefdinir 300 mg BID. He started all 3 of these medications this morning. His new PCP was going to arrange for an MRI of his brain. The patient's tells me that the patient was drinking 6 to 8 16-oz beers per night up until 6 days ago, 08/21/2021, then went without any beer on 08/25/2021 and 08/26/2021. He had 1 beer tonight. The patient has not followed up at [facility]. Here in the ED tonight, the patient was initially found to be tachycardic at 104 bpm, otherwise, his vitals are within normal limits. He is afebrile, saturating 93% on room air. He appears to be comfortable, in no acute distress. The patient's states that the patient has had some recent nausea, but no vomiting. She denies that the patient has had recent chills, sore throat, ear pain, nasal or sinus congestion, cough, dyspnea, chest pain, palpitations, constipation, diarrhea, abdominal pain, urinary symptoms, recent bloody bowel movements or black bowel movements, recent joint aches, headaches, or rashes. The patient's PCP is Elvia Chandra NP. He has not received a COVID vaccination, nor an influenza vaccination this season. Past Medical History HEENT History: Reports: Hard of Hearing, Impaired Vision Cardiovascular History: Reports: CAD (untreated), High Cholesterol (untreated), Hypertension (untreated), UT (by coronary angiogram) Gastrointestinal History: Reports: Bowel Obstruction (recurrent), GERD (untreated) Genitourinary History: Reports: BPH (untreated) Musculoskeletal History: Reports: Osteoarthritis Neurological History: Reports: CVA (lacunar, left temporal lobe, on CT/head) Psychiatric History: Reports: Addiction (alcohol), Anxiety (untreated), Depression (untreated) - Infectious Disease History Infectious Disease History: Reports: Chicken Pox - Past Surgical History Cardiovascular Surgical History: Reports: Other (See Below) (coronary aniogram x 1) GI Surgical History: Reports: Appendectomy, Lysis of Adhesions (x 4 or 5) Musculoskeletal Surgical History: Reports: Shoulder Surgery (Right, arthroscopic x 3. Right reverse arthroplasty.) Social & Family History - Tobacco Use Tobacco Use Status *Q: Current Some Day Tobacco User Years of Tobacco use: 47 Packs/Tins Daily: 1 Packs/Tins Daily Comment: Down from 3 ppd Tobacco Use Comment: Started smoking 1973 - Alcohol Use Alcohol Use History: Yes Days Per Week of Alcohol Use: 7 Number of Drinks Per Day: 9 Total Drinks Per Week: 63 Alcohol Use Frequency: Daily - Recreational Drug Use Recreational Drug Use: Yes Drug Use in Last 12 Months: No Recreational Drug Type: Reports: Marijuana/Hashish (last smoked ) - Living Situation & Occupation Living situation: Reports: , with Spouse, with Family (Daughter) Occupation: Unemployed ED ROS GENERAL - Review of Systems Review Of Systems: Comprehensive ROS is negative, except as noted in HPI. ED EXAM, GENERAL - Physical Exam Exam: See Below Exam Limited By: No Limitations General Appearance: Alert, No Apparent Distress, Thin Eye Exam: Bilateral Eye: EOMI, Normal Inspection Ears: Normal External Exam, Hearing Grossly Normal Nose: Normal Inspection Throat/Mouth: Normal Inspection, Normal Lips, Normal Voice, No Airway Compromise Head: Atraumatic, Normocephalic Neck: Normal Inspection, Full Range of Motion Respiratory/Chest: No Respiratory Distress, Lungs Clear, Normal Breath Sounds, No Accessory Muscle Use Cardiovascular: Normal Peripheral Pulses, Regular Rate, Rhythm, No Edema, No Gallop, No JVD, No Murmur, No Rub Peripheral Pulses: 3+: Radial (L), Radial (R) GI/Abdominal: Normal Bowel Sounds, Soft, Non-Tender, No Organomegaly, No Distention, No Abnormal Bruit, No Mass Back Exam: Normal Inspection, Full Range of Motion, NT Extremities: Normal Inspection, Normal Range of Motion, No Pedal Edema, Normal Capillary Refill Neurological: Alert, Oriented (to person, place, year and month, not date or day of the week), CN II-XII Intact, No Motor/Sensory Deficits, Other (Slightly somnolent, easily aroused) Psychiatric: Normal Affect Skin Exam: Warm, Dry, Intact, Normal Color, No Rash Course - Vital Signs Last Recorded V/S: Last Vital Signs Temp 36.7 C 08/28/21 17:42 Pulse 94 08/28/21 17:42 Resp 16 08/28/21 17:42 BP 103/68 08/28/21 17:42 Pulse Ox 94 L 08/28/21 17:42 Orthostatic Blood Pressure [ 88/67 Standing] Orthostatic Blood Pressure [ 95/70 Sitting] Orthostatic Blood Pressure [ 100/69 Supine] - Orders/Labs/Meds Orders: Active Orders 24 hr Category Date Time Status Orthostatic Vital Signs [RC] STAT Care 08/27/21 23:06 Active Vital Signs [RC] Q15M Care 08/28/21 01:34 Active Consult to Case Management/Resaw Machine Operator [CONS] Cons 08/28/21 10:12 Active Routine EPINEPHrine [Adrenalin] Med 08/28/21 01:34 Active 0.3 mg IM ASDIRECTED PRN Famotidine [Pepcid] Med 08/28/21 01:34 Active 20 mg IVPUSH ASDIRECTED PRN Sodium Chloride 0.9% [Normal Saline] 1,000 ml Med 08/27/21 23:45 Active IV ASDIRECTED Sodium Chloride 0.9% [Saline Flush] Med 08/28/21 01:45 Active 30 ml FLUSH ASDIRECTED diphenhydrAMINE [Benadryl] Med 08/28/21 01:34 Active 50 mg IVPUSH ASDIRECTED PRN methylPREDNISolone Sod Succ [Solu-MEDROL] Med 08/28/21 01:34 Active 125 mg IVPUSH ASDIRECTED PRN Medication Orders Diphenhydramine HCl (Diphenhydramine 50 Mg/Ml Sdv) 50 mg IVPUSH ASDIRECTED PRN PRN Reason: hypersensitivity reaction Epinephrine HCl (Epinephrine 1 Mg/Ml Sdv) 0.3 mg IM ASDIRECTED PRN PRN Reason: hypersensitivity reaction Famotidine (Famotidine 20 Mg/2 Ml Sdv) 20 mg IVPUSH ASDIRECTED PRN PRN Reason: hypersensitivity reaction Sodium Chloride (Normal Saline) 1,000 mls @ 150 mls/hr IV ASDIRECTED MIGUEL Last Admin: 08/28/21 00:35 Dose: 150 mls/hr Documented by: EDGARDO Methylprednisolone Sodium Succinate (Methylprednisolone Sodium Succinate 125 Mg/2 Ml Sdv) 125 mg IVPUSH ASDIRECTED PRN PRN Reason: hypersensitivity reaction Sodium Chloride (Sodium Chloride 0.9% 10 Ml Syringe) 30 ml FLUSH ASDIRECTED MIGUEL Last Admin: 08/28/21 04:54 Dose: 30 ml Documented by: EDGARDO Labs: Laboratory Tests 08/27/21 08/27/21 08/27/21 Range/Units 23:05 23:05 23:05 WBC 6.57 (4.23-9.07) K/mm3 RBC 4.96 (4.63-6.08) M/mm3 Hgb 16.4 (13.7-17.5) gm/dl Hct 47.3 (40.1-51.0) % MCV 95.4 H (79.0-92.2) fl MCH 33.1 H (25.7-32.2) pg MCHC 34.7 (32.2-35.5) g/dl RDW Std Deviation 44.0 H (35.1-43.9) fL Plt Count 382 H D (163-337) K/mm3 MPV 9.7 (9.4-12.3) fl Neutrophils % (Manual) 85 H (40-60) % Band Neutrophils % 0 (0-10) % Lymphocytes % (Manual) 11 L (20-40) % Atypical Lymphs % 0 % Monocytes % (Manual) 4 (2-10) % Eosinophils % (Manual) 0 L (0.8-7.0) % Basophils % (Manual) 0 L (0.2-1.2) Platelet Estimate Adequate RBC Morph Comment Normal D-Dimer, Quantitative 0.46 (0.19-0.50) mg/L Sodium 129 L (136-145) mEq/L Potassium 3.9 (3.5-5.1) mEq/L Chloride 93 L (98-107) mEq/L Carbon Dioxide 28 (21-32) mEq/L Anion Gap 11.9 (5-15) BUN 4 L (7-18) mg/dL Creatinine 0.7 (0.7-1.3) mg/dL Est Cr Clr Drug Dosing 101.96 mL/min Estimated GFR (MDRD) > 60 (>60) mL/min BUN/Creatinine Ratio 5.7 L (14-18) Glucose 158 H (70-99) mg/dL Calcium 8.4 L (8.5-10.1) mg/dL Magnesium 2.0 (1.8-2.4) mg/dL Total Bilirubin 0.5 (0.2-1.0) mg/dL AST 53 H (15-37) U/L ALT 69 H (16-63) U/L Alkaline Phosphatase 64 (46-116) U/L Troponin I < 0.017 (0.00-0.056) ng/mL C-Reactive Protein 1.2 H* (<1.0) mg/dL Total Protein 6.4 (6.4-8.2) g/dl Albumin 2.3 L (3.4-5.0) g/dl Globulin 4.1 gm/dL Albumin/Globulin Ratio 0.6 L (1-2) Urine Color (Yellow) Urine Appearance (Clear) Urine pH (5.0-8.0) Ur Specific [place] (1.005-1.030) Urine Protein (Negative) Urine Glucose (UA) (Negative) Urine Ketones (Negative) Urine Occult Blood (Negative) Urine Nitrite (Negative) Urine Bilirubin (Negative) Urine Urobilinogen (0.2-1.0) Ur Leukocyte Esterase (Negative) Urine RBC (0-5) /hpf Urine WBC (0-5) /hpf Ur Epithelial Cells (0-5) /hpf Amorphous Sediment (NOT SEEN) /hpf Urine Bacteria (FEW) /hpf Urine Mucus (FEW) /hpf Urine Opiates Screen (BPCTQO=688) Ur Buprenorphine Scrn (CUTOFF=10) Ur Oxycodone Screen (XSO1FV=875) Urine Methadone Screen (NSY8PQ=663) Ur Propoxyphene Screen (QAJRHT=548) Ur Barbiturates Screen (TAAOCL=840) Ur Tricyclics Screen (ZAFXDL=958) Ur Phencyclidine Scrn (CUTOFF=25) Ur Amphetamine Screen (QDGEIN=123) U Methamphetamines Scrn (XAVOMI=792) U Benzodiazepines Scrn (ZOEPLC=505) U Cocaine Metab Screen (EZGOEN=063) U Marijuana (THC) Screen (CUTOFF=50) Ethyl Alcohol 0.00 (0.00) gm% SARS-CoV-2 RNA (JUSTINE) (NEGATIVE) 08/27/21 08/28/21 08/28/21 Range/Units 23:25 00:50 00:50 WBC (4.23-9.07) K/mm3 RBC (4.63-6.08) M/mm3 Hgb (13.7-17.5) gm/dl Hct (40.1-51.0) % MCV (79.0-92.2) fl MCH (25.7-32.2) pg MCHC (32.2-35.5) g/dl RDW Std Deviation (35.1-43.9) fL Plt Count (163-337) K/mm3 MPV (9.4-12.3) fl Neutrophils % (Manual) (40-60) % Band Neutrophils % (0-10) % Lymphocytes % (Manual) (20-40) % Atypical Lymphs % % Monocytes % (Manual) (2-10) % Eosinophils % (Manual) (0.8-7.0) % Basophils % (Manual) (0.2-1.2) Platelet Estimate RBC Morph Comment D-Dimer, Quantitative (0.19-0.50) mg/L Sodium (136-145) mEq/L Potassium (3.5-5.1) mEq/L Chloride (98-107) mEq/L Carbon Dioxide (21-32) mEq/L Anion Gap (5-15) BUN (7-18) mg/dL Creatinine (0.7-1.3) mg/dL Est Cr Clr Drug Dosing mL/min Estimated GFR (MDRD) (>60) mL/min BUN/Creatinine Ratio (14-18) Glucose (70-99) mg/dL Calcium (8.5-10.1) mg/dL Magnesium (1.8-2.4) mg/dL Total Bilirubin (0.2-1.0) mg/dL AST (15-37) U/L ALT (16-63) U/L Alkaline Phosphatase (46-116) U/L Troponin I (0.00-0.056) ng/mL C-Reactive Protein (<1.0) mg/dL Total Protein (6.4-8.2) g/dl Albumin (3.4-5.0) g/dl Globulin gm/dL Albumin/Globulin Ratio (1-2) Urine Color Yellow (Yellow) Urine Appearance Clear (Clear) Urine pH 7.0 (5.0-8.0) Ur Specific [place] 1.010 (1.005-1.030) Urine Protein Negative (Negative) Urine Glucose (UA) Negative (Negative) Urine Ketones Trace H (Negative) Urine Occult Blood Negative (Negative) Urine Nitrite Negative (Negative) Urine Bilirubin Negative (Negative) Urine Urobilinogen 1.0 (0.2-1.0) Ur Leukocyte Esterase Negative (Negative) Urine RBC Not seen (0-5) /hpf Urine WBC 0-5 (0-5) /hpf Ur Epithelial Cells Not seen (0-5) /hpf Amorphous Sediment Few H (NOT SEEN) /hpf Urine Bacteria Rare (FEW) /hpf Urine Mucus Not seen (FEW) /hpf Urine Opiates Screen Negative (DMXBSR=508) Ur Buprenorphine Scrn Negative (CUTOFF=10) Ur Oxycodone Screen Negative (SIV1MV=197) Urine Methadone Screen Negative (FHG2XN=540) Ur Propoxyphene Screen Negative (XSHRIC=622) Ur Barbiturates Screen Negative (XYMVXB=602) Ur Tricyclics Screen Negative (IRLQUS=801) Ur Phencyclidine Scrn Negative (CUTOFF=25) Ur Amphetamine Screen Negative (OHHEWI=634) U Methamphetamines Scrn Negative (BTSIDS=107) U Benzodiazepines Scrn Negative (ASNWMJ=436) U Cocaine Metab Screen Negative (NISKTD=735) U Marijuana (THC) Screen Negative (CUTOFF=50) Ethyl Alcohol (0.00) gm% SARS-CoV-2 RNA (JUSTINE) Positive H (NEGATIVE) Meds: Medications Generic Name Dose Route Start Last Admin Trade Name Freq PRN Reason Stop Dose Admin Diphenhydramine HCl 50 mg 08/28/21 01:34 Diphenhydramine 50 Mg/Ml Sdv IVPUSH ASDIRECTED PRN hypersensitivity reaction Epinephrine HCl 0.3 mg 08/28/21 01:34 Epinephrine 1 Mg/Ml Sdv IM ASDIRECTED PRN hypersensitivity reaction Famotidine 20 mg 08/28/21 01:34 Famotidine 20 Mg/2 Ml Sdv IVPUSH ASDIRECTED PRN hypersensitivity reaction Sodium Chloride 1,000 mls @ 150 mls/hr 08/27/21 23:45 08/28/21 00:35 Normal Saline IV 150 mls/hr ASDIRECTED MIGUEL Administration Methylprednisolone Sodium Succinate 125 mg 08/28/21 01:34 Methylprednisolone Sodium Succinate 125 Mg/2 Ml Sdv IVPUSH ASDIRECTED PRN hypersensitivity reaction Sodium Chloride 30 ml 08/28/21 01:45 08/28/21 04:54 Sodium Chloride 0.9% 10 Ml Syringe FLUSH 30 ml ASDIRECTED MIGUEL Administration Discontinued Medications Generic Name Dose Route Start Last Admin Trade Name Freq PRN Reason Stop Dose Admin CASIRIVIMAB/IMDEVIMAB 10 ml/ 110 mls @ 220 mls/hr 08/28/21 01:34 08/28/21 02:17 Sodium Chloride IV 08/28/21 02:03 220 mls/hr ONETIME ONE Administration Lorazepam 1 mg 08/28/21 03:36 08/28/21 03:42 Lorazepam 1 Mg Tab PO 08/28/21 03:37 1 mg ONETIME ONE Administration Lorazepam 1 mg 08/28/21 04:39 08/28/21 04:52 Lorazepam 2 Mg/Ml Sdv IM 08/28/21 04:40 1 mg ONETIME ONE Administration - Re-Assessments/Exams Free Text/Narrative Re-Assessment/Exam: 08/27/21 23:14 On examination, the patient is aware of where he is, what year it is, what month it is, but states that he does not know the date of the month, and believes that it is Friday (today is Friday). He correctly stated that there were 3 people in the room, including himself and his , but stated that earlier, there was a gentleman sitting in the corner, who is not there now. His physical exam is unremarkable. I have ordered a work-up that includes orthostatics, numerous blood tests, a urinalysis and urine drug screen, a swab for the SARS-CoV-2 virus, and a chest x-ray. 08/27/21 23:33 The patient is not orthostatic. 08/27/21 23:56 The patient's CBC is remarkable for mild thrombocytosis of 382,000, and is otherwise unremarkable. His CMP is remarkable for hyponatremia of 129 and modest hyperglycemia of 158. His AST/ALT are slightly elevated at 53/69, respectively, with remainder of his CMP being unremarkable. His magnesium level is within normal limits at 2.0. His CRP is mildly elevated at 1.2. His troponin is undetectably low. His D-dimer is within normal limits at 0.46. His EtOH level is 0.00. Based on the above, I have ordered NS at 150 mL/h. 08/28/21 01:23 Two-view chest radiograph reviewed. The cardiac silhouette is within normal limits. No pulmonary vascular congestion. No pleural effusions. No focal infiltrate. No pneumothorax. Small piece of the left 8th rib missing. Formal read per the Radiologist pending. The patient's urinalysis is unremarkable. His urine drug screen is negative. His swab for the SARS-CoV-2 virus is positive. 08/28/21 01:34 Test results discussed with the patient and his . Based on the patient's numerous untreated medical comorbidities, he is a candidate for an infusion of the monoclonal antibody Regen-Cov. We discussed that at length, including that it is an emergency use authorization medication intended to decrease the likelihood of patients diagnosed with COVID-19 from developing severe symptoms or , and that it does not treat current symptoms. I explained that Regen- Cov is still under investigation, that it is not fully FDA approved, and that the potential benefits and risks of the medication are not fully known. The patient was notified that if he receives Regen-Cov, that it may decrease his immune response to a COVID vaccination, should he decide to get it after he recovers from his current illness. I explained that there is a possibility that he could have an allergic reaction either during or after the infusion, as well as brief pain, bleeding, bruising of the skin, soreness, swelling, and possible infection at the infusion site. Other side effects could occur. I discussed that there are other potential treatment options that are currently not FDA approved to treat COVID-19. The patient was notified that the infusion takes about half an hour, after which he would be expected to remain in the ED for another hour to observe for possible side effects. He was offered the "Patient and caregiver JASEN Regen-Cov fact sheet" to read and review. All questions were answered. The patient expressed understanding, and would like to proceed with t he infusion. My initial plan had been to see if we could place the patient into a skilled nursing for rehabilitation, however, no skilled nursing will accept the patient with COVID-19, therefore that is no longer an option. 08/28/21 05:52 The patient has been agitated, likely due to alcohol withdrawal. He self- discontinued his IV. He has been given 1 mg of oral lorazepam, followed by 1 mg of IM lorazepam. 08/28/21 07:[address] Newton at 06:57. If the patient were to be admitted, he would need to be admitted to the ICU, and at present there are no ICU beds available. There may be an ICU bed available this afternoon, however, Dr. Newton is concerned that the patient would require one-on-one, and because of his COVID-19, require a 10-day stay before being able to be discharged to a skilled nursing. He recommended that we contact manager social services to see what they can do. 08/28/21 07:[address] Morrison, and care of the patient turned over to him at this time, for change of shift. 08/28/21 21:[address] Morrison that the patient had a relatively uneventful day, that he is been more alert, and walking around. [facility] was contacted, and they are expected to come by the ED tonight to evaluate the patient for possible placement at [facility]. 08/28/21 22:35 Notified that the contracts representative from [facility] feels that the patient is appropriate for [facility], but we still need approval from an [facility] nurse. 08/28/21 23:03 Notified that the patient is accepted at [facility]. Departure - Departure Time of Disposition: 23:03 Condition: Good - Discharge Information *PRESCRIPTION DRUG MONITORING PROGRAM REVIEWED*: Not Applicable *COPY OF PRESCRIPTION DRUG MONITORING REPORT IN PATIENT RASHIDA: Not Applicable Sepsis Event Note (ED) - Evaluation Sepsis Screening Result: No Definite Risk - Focused Exam Vital Signs: Vital Signs Temp Pulse Resp BP Pulse Ox 08/28/21 17:42 36.7 C 94 16 103/68 94 L - My Orders Last 24 Hours: My Active Orders 08/27/21 23:06 Orthostatic Vital Signs [RC] STAT 08/27/21 23:45 Sodium Chloride 0.9% [Normal Saline] 1,000 ml IV ASDIRECTED 08/28/21 01:34 Vital Signs [RC] Q15M EPINEPHrine [Adrenalin] 0.3 mg IM ASDIRECTED PRN Famotidine [Pepcid] 20 mg IVPUSH ASDIRECTED PRN diphenhydrAMINE [Benadryl] 50 mg IVPUSH ASDIRECTED PRN methylPREDNISolone Sod Succ [Solu-MEDROL] 125 mg IVPUSH ASDIRECTED PRN 08/28/21 01:45 Sodium Chloride 0.9% [Saline Flush] 30 ml FLUSH ASDIRECTED 08/28/21 10:12 Consult to Case Management/Resaw Machine Operator [CONS] Routine - Assessment/Plan Last 24 Hours: My Active Orders 08/27/21 23:06 Orthostatic Vital Signs [RC] STAT 08/27/21 23:45 Sodium Chloride 0.9% [Normal Saline] 1,000 ml IV ASDIRECTED 08/28/21 01:34 Vital Signs [RC] Q15M EPINEPHrine [Adrenalin] 0.3 mg IM ASDIRECTED PRN Famotidine [Pepcid] 20 mg IVPUSH ASDIRECTED PRN diphenhydrAMINE [Benadryl] 50 mg IVPUSH ASDIRECTED PRN methylPREDNISolone Sod Succ [Solu-MEDROL] 125 mg IVPUSH ASDIRECTED PRN 08/28/21 01:45 Sodium Chloride 0.9% [Saline Flush] 30 ml FLUSH ASDIRECTED 08/28/21 10:12 Consult to Case Management/Resaw Machine Operator [CONS] Routine
[2021-08-27] MEDS ORDERED: Sodium Chloride 0.9% 1,000 ML IV SCH (23:45)
[2021-08-28] MEDS ORDERED: Famotidine 20 MG/2 ML SDV IVPUSH PRN (01:34)
[2021-08-28] MEDS ORDERED: EPINEPHrine 1 MG/ML SDV IM PRN (01:34)
[2021-08-28] MEDS ORDERED: methylPREDNISolone Sodium Succinate 125 MG/2 ML SDV IVPUSH PRN (01:34)
[2021-08-28] MEDS ORDERED: diphenhydrAMINE 50 MG/ML SDV IVPUSH PRN (01:34)
[2021-08-28] MEDS ORDERED: Sodium Chloride 0.9% 10 ML Syringe FLUSH SCH (01:45)
[2021-08-28] MEDS ORDERED: LORazepam 1 MG Tab PO ONE (03:36)
[2021-08-28] MEDS ORDERED: LORazepam 2 MG/ML SDV IM ONE (04:39)
--- NOTE | 2021-08-28 07:00 | CR ---
Chest: 2 views of the chest were obtained. Comparison: Prior chest x-ray of 08/17/21. Heart size and mediastinum are within normal limits. Small portion of the lateral left costophrenic angle is not included on this exam. Small portion of the left posterior eighth rib is missing which is a stable finding. Right shoulder prosthesis is seen. Lungs show no definite acute parenchymal change. Impression: 1. Stable findings as noted above. 2. Nothing acute is appreciated on two-view chest x-ray. Diagnostic code #2
--- NOTE | 2021-08-28 13:58 | CT ---
Head CT Technique: Multiple axial sections through the brain were obtained. Intravenous contrast was not utilized. Reconstructed coronal and sagittal images were obtained. Comparison: No prior intracranial imaging is available. Findings: Ventricles along with basal cisterns and sulci over the convexities are mildly prominent. Old infarct is noted within the left temporal region. No other abnormal parenchymal densities are seen. No evidence of intracranial hemorrhage is seen. No midline shift or mass-effect is seen. Bone window settings were reviewed. Visualized mastoid sinuses and paranasal sinuses show nothing acute. No acute calvarial abnormality is appreciated. Impression: 1. Mild atrophy with small old infarct within the left temporal region. 2. No acute intracranial abnormality is appreciated. Diagnostic code #2
[2021-08-28 17:42] VITALS: BP 103/68; PULSE 94
== END 2021-08-28 23:45 ==
LOC: JD.ED 22:20
DX: U07.1 COVID-19 (principal); F10.230 Alcohol dependence with withdrawal, uncomplicated; I25.10 Atherosclerotic heart disease of native coronary artery without angina pectoris; E78.00 Pure hypercholesterolemia, unspecified; I10 Essential (primary) hypertension; E87.1 Hypo-osmolality and hyponatremia; Z86.73 Personal history of transient ischemic attack (TIA), and cerebral infarction without residual deficits; Z88.8 Allergy status to other drugs, medicaments and biological substances; Z72.0 Tobacco use; Z79.899 Other long term (current) drug therapy
CPT/HCPCS: 36415; 70450; 71046; 80053; 80306; 80307; 81001; 83735; 84484; 85007; 85027; 85379; 86140; 87635; 96372; 99285; A9270; J2060; J7030; M0243; Q0243; U0002

== ENCOUNTER 2021-08-29 00:25 | Emergency (ER) | payer BC ==
[2021-08-29 01:24] VITALS: BP 118/67; PULSE 88
--- NOTE | 2021-08-29 02:54 | EDM.PDOCBH ---
ED HPI GENERAL MEDICAL PROBLEM - General Chief Complaint: Behavioral/Psych Stated Complaint: UNABLE TO WALK Time Seen by Provider: 08/29/21 01:05 Source of Information: Reports: RN Notes Reviewed - History of Present Illness INITIAL COMMENTS - FREE TEXT/NARRATIVE: Please see the extensive ED note from 08/27/2021. He is suffering from deconditioning due to chronic daily alcoholism, relatively mild alcohol withdrawal, and was found to have COVID-19. He was evaluated by [facility] and found to be appropriate to go to [facility]. He was taken to [facility], but was then either unable or unwilling to get out of the car, and stumbled in the parking lot once out of the car. [facility] felt that he was not appropriate after all, therefore brought him back to the ED. Once back here, he was able to get out of the car with no difficulty, and ambulated back to an exam room without requiring assistance. The patient is found to be hemodynamically stable, afebrile, saturating 94% on room air. He has been ambulating around his room and to the bathroom without apparent difficulty. He does not appear to be in acute distress. It appears that the patient did not really want to go to [facility], which is consisten t with his not having followed up at [facility] as directed. Unfortunately, I cannot admit him to the hospital, as he does not have an admittable diagnosis, therefore he will need to be discharged home. I am told Kinza MONTEZ called his , who did not answer the phone. We will therefore keep him in the ED until the morning, at which time we will make arrangements to get him home. - Related Data Allergies Allergy/AdvReac Type Severity Reaction Status Date / Time hydrochlorothiazide AdvReac Nausea Verified 08/29/21 01:24 Home Meds: Home Meds . [No Known Home Meds] 08/29/21 [History] Past Medical History HEENT History: Reports: Hard of Hearing, Impaired Vision Cardiovascular History: Reports: CAD (untreated), High Cholesterol (untreated), Hypertension (untreated), TN (by coronary angiogram) Gastrointestinal History: Reports: Bowel Obstruction (recurrent), GERD (untreated) Genitourinary History: Reports: BPH (untreated) Musculoskeletal History: Reports: Osteoarthritis Neurological History: Reports: CVA (lacunar, left temporal lobe, on CT/head) Psychiatric History: Reports: Addiction (alcohol), Anxiety (untreated), Depression (untreated) - Infectious Disease History Infectious Disease History: Reports: Chicken Pox, Novel Coronavirus (dx'd 08/27/2021) - Past Surgical History Cardiovascular Surgical History: Reports: Other (See Below) (Coronary angiogram x 1) Respiratory Surgical History: Reports: Thoracotomy (left, with pleurodesis) GI Surgical History: Reports: Appendectomy, Lysis of Adhesions (x 4 or 5) Musculoskeletal Surgical History: Reports: Shoulder Surgery (Right, arthroscopic x 3. Right reverse arthroplasty.) Social & Family History - Tobacco Use Tobacco Use Status *Q: Current Every Day Tobacco User Years of Tobacco use: 47 Packs/Tins Daily: 1 Packs/Tins Daily Comment: Down from 3 ppd Tobacco Use Comment: Started smoking 1973 - Alcohol Use Alcohol Use History: Yes Days Per Week of Alcohol Use: 7 Number of Drinks Per Day: 9 Total Drinks Per Week: 63 Alcohol Use Frequency: Daily - Recreational Drug Use Recreational Drug Use: Yes Drug Use in Last 12 Months: No Recreational Drug Type: Reports: Marijuana/Hashish (last smoked ) - Living Situation & Occupation Living situation: Reports: , with Spouse, with Family (Daughter) Occupation: Unemployed ED ROS GENERAL - Review of Systems Review Of Systems: Comprehensive ROS is negative, except as noted in HPI. (see ED note 08/27/2021) ED EXAM, BEHAVIORAL HEALTH - Physical Exam Exam: See Below Exam Limited By: No Limitations General Appearance: Alert, No Apparent Distress, Thin Eye Exam: Bilateral Eye: EOMI, Normal Inspection Ears: Normal External Exam, Hearing Loss Nose: Normal Inspection Throat/Mouth: Normal Inspection, Normal Lips, Normal Voice, No Airway Compromise Head: Atraumatic, Normocephalic Neck: Normal Inspection, Full Range of Motion Respiratory/Chest: No Respiratory Distress, Lungs Clear, Normal Breath Sounds, No Accessory Muscle Use Cardiovascular: Normal Peripheral Pulses, Regular Rate, Rhythm, No Edema, No Gallop, No JVD, No Murmur, No Rub GI/Abdominal: Normal Bowel Sounds, Soft, Non-Tender, No Organomegaly, No Distention, No Abnormal Bruit, No Mass Back Exam: Normal Inspection, Full Range of Motion, NT Extremities: Normal Inspection, Normal Range of Motion, No Pedal Edema, Normal Capillary Refill Neurological: Alert, Normal Gait, No Motor/Sensory Deficits, Oriented x 3 Psychiatric: Normal Affect Skin Exam: Warm, Dry, Intact, Normal color, No rash COURSE, BEHAVIORAL HEALTH COMP - Course Vital Signs: Last Vital Signs Temp 36.6 C 08/29/21 01:00 Pulse 88 08/29/21 01:00 Resp 18 08/29/21 01:00 BP 118/67 08/29/21 01:00 Pulse Ox 94 L 08/29/21 01:00 Medical Clearance: 08/29/21 07:10 The patient's nurses have been unable to reach the patient's by phone. We will discharge him and send him home by cab. Departure - Departure Time of Disposition: 07:11 Disposition: Home, Self-Care 01 Condition: Good Clinical Impression: Alcohol dependence, daily use, Alcohol withdrawal, Physical deconditioning, COVID-19 - Discharge Information *PRESCRIPTION DRUG MONITORING PROGRAM REVIEWED*: Not Applicable *COPY OF PRESCRIPTION DRUG MONITORING REPORT IN PATIENT RASHIDA: Not Applicable Referrals: Elvia Chandra NP [Primary Care Provider] - Forms: ED Department Discharge Additional Instructions: You were seen in the emergency room for erratic behavior and visual hallucinations. Work-up in the ER included positional blood pressure checks numerous blood tests, a urinalysis and urine drug screen, a swab for the SARS-CoV-2 virus, and a chest x-ray. Your sodium level was found to be mildly depressed at 129. You were given IV fluid replacement. Your swab for the SARS-CoV-2 virus returned positive, meaning that you have COVID-19. You were treated with an infusion of the monoclonal antibodies Regen-Cov (Regeneron). The purpose of Regen-Cov is to reduce the likelihood that you will develop serious consequences of COVID-19, including needing to be put on a ventilator, or dying. Regen-Cov does not treat the symptoms of COVID-19. Arrangements were made for you to go to [facility], but once there, you were unable/unwilling to get out of the car, and stumbled in the parking lot. You were brought back to the ER, where you had no difficulty getting out of the car, and were able to ambulate without difficulty. It is understood that you do not want to receive treatment for your alcoholism at this time. We recommend that you abstain from drinking alcohol, stay adequately hydrated, and take [id number] ibuprofen as needed for discomfort. It is imperative that you strictly isolate through , 09/06/2021, at which time you should get retested for the SARS-CoV-2 virus. If you are still positive, you need to continue to isolate until you test negative. You do not have pneumonia. We recommend that you NOT take the prednisone or cefdinir that was prescribed by your PCP. You may take the ondansetron (Zofran) as prescribed, for nausea. If any other problems, please do not hesitate to return to the ER. Sepsis Event Note (ED) - Evaluation Sepsis Screening Result: No Definite Risk - Focused Exam Vital Signs: Vital Signs Temp Pulse Resp BP Pulse Ox 08/29/21 01:00 36.6 C 88 18 118/67 94 L
== END 2021-08-29 07:40 | disposition home or self-care (01) ==
LOC: JD.ED 00:25
DX: U07.1 COVID-19 (principal); F10.239 Alcohol dependence with withdrawal, unspecified; I10 Essential (primary) hypertension; I25.2 Old myocardial infarction; F17.210 Nicotine dependence, cigarettes, uncomplicated; Z88.8 Allergy status to other drugs, medicaments and biological substances
CPT/HCPCS: 99283; 99284

== ENCOUNTER 2024-07-31 00:26 | Inpatient (IN) | payer BC, MEDICARE ==
[2024-07-31] MEDS: Sodium Chloride 0.9% 10 ML Syringe FLUSH PRN (01:06)
[2024-07-31] MEDS: Ondansetron 4 MG/2 ML SDV IVPUSH ONE (01:06)
[2024-07-31] MEDS: Sodium Chloride 0.9% 1,000 ML IV STA (01:06)
[2024-07-31] MEDS: HYDROmorphone 0.5 MG/0.5 ML Syringe IVPUSH ONE ×4 (01:06→05:29)
[2024-07-31 01:19] LABS: BASOPHILS PERCENT AUTO 0.3 % (0.0-1.0); EOSINOPHILS ABSOLUTE AUTO 0.1 K/mm3 (0.0-0.4); HEMATOCRIT 41.6 % (42.0-52.0); HEMOGLOBIN 14.5 gm/dl (14.0-18.0); IMMATURE GRAN ABSOLUTE AUTO 0.02 K/mm3 (0.00-0.05); IMMATURE GRAN PERCENT AUTO 0.2 % (0.0-0.4); LYMPHOCYTES ABSOLUTE AUTO 1.6 K/mm3 (1.0-4.8); LYMPHOCYTES PERCENT AUTO 17.9 % (24.0-44.0); MEAN CORPUSCULAR HEMOGLOBIN 32.7 pg (28.0-32.0); MEAN CORPUSCULAR HGB CONC 34.9 g/dl (32.0-36.0); MEAN CORPUSCULAR VOLUME 93.7 fl (83.0-99.0); MEAN PLATELET VOLUME 8.5 fl (9.4-12.4); MONOCYTES ABSOLUTE AUTO 0.6 K/mm3 (0.0-0.8); MONOCYTES PERCENT AUTO 6.8 % (0.0-8.0); NEUTROPHILS ABSOLUTE AUTO 6.5 K/mm3 (1.8-7.7); NEUTROPHILS PERCENT AUTO 73.8 % (41.0-71.0); PLATELET COUNT,PLT 226 K/mm3 (150-400); RED BLOOD CELL COUNT 4.44 M/mm3 (4.52-5.90); WHITE BLOOD CELL COUNT,WBC 8.81 K/mm3 (3.9-11.3)
[2024-07-31 01:44] LABS: ALBUMIN 3.1 g/dl (3.4-5.0); ANION GAP 11.4 (5-15); BILIRUBIN TOTAL 0.8 mg/dL (0.2-1.0); CALCIUM 8.5 mg/dL (8.5-10.1); CREATININE 0.5 mg/dL (0.7-1.3); EST CRCL DRUG DOSING (CG) 139.81 mL/min; POTASSIUM,K 4.4 mEq/L (3.5-5.1); PROTEIN TOTAL,TP 6.2 g/dl (6.4-8.2)
[2024-07-31] MEDS: Iopamidol 612 MG/ML 100 ML Bottle IVPUSH ONE (02:34)
[2024-07-31 03:37] LABS: APPEARANCE,URINE CLEAR (Clear); BILIRUBIN,URINE NEGATIVE (Negative); COLOR,URINE YELLOW (Yellow); GLUCOSE,URINE NEGATIVE (Negative); KETONES,URINE 1+ (Negative); LEUKOCYTE ESTERASE,URINE NEGATIVE (Negative); NITRITE,URINE NEGATIVE (Negative); OCCULT BLOOD,URINE NEGATIVE (Negative); PH,URINE 6.5 (5.0-8.0); PROTEIN,URINE NEGATIVE (Negative); UROBILINOGEN,URINE 0.2 (0.2-1.0)
[2024-07-31 03:51] LABS: BACTERIA,URINE RARE /hpf (FEW); EPITHELIAL CELLS,URINE 0-5 /hpf (0-5); MUCUS,URINE NOT SEEN /hpf (FEW); RBC,URINE 0-5 /hpf (0-5); WBC,URINE 0-5 /hpf (0-5)
[2024-07-31] MEDS: Lactated Ringers 1,000 ML IV SCH (06:46)
[2024-07-31] MEDS ORDERED: Polyethylene Glycol 3350 Powder 17 GM Packet PO PRN (07:27)
[2024-07-31] MEDS ORDERED: Acetaminophen 325 MG Tab PO PRN (07:27)
[2024-07-31] MEDS ORDERED: Naloxone 0.4 MG/ML SDV IVPUSH PRN (07:27)
[2024-07-31 07:58] LABS: CHOLESTEROL HDL 102 mg/dL (40-59); CHOLESTEROL LDL DIRECT 12 mg/dL (<100); CHOLESTEROL TOTAL 124 mg/dL (<200); TRIGLYCERIDES 64 mg/dL (<150)
[2024-07-31] MEDS: Ondansetron 4 MG/2 ML SDV IV PRN (08:02)
[2024-07-31] MEDS: HYDROmorphone 0.5 MG/0.5 ML Syringe IVPUSH PRN (08:19)
[2024-08-01] MEDS: oxyCODONE 5 MG Tab PO PRN (00:45)
[2024-08-01 05:37] LABS: BASOPHILS ABSOLUTE AUTO 0.1 K/mm3 (0.0-0.2); BASOPHILS PERCENT AUTO 0.5 % (0.0-1.0); EOSINOPHILS ABSOLUTE AUTO 0.2 K/mm3 (0.0-0.4); EOSINOPHILS PERCENT AUTO 1.9 % (0.0-6.0); HEMATOCRIT 37.3 % (42.0-52.0); IMMATURE GRAN ABSOLUTE AUTO 0.03 K/mm3 (0.00-0.05); IMMATURE GRAN PERCENT AUTO 0.3 % (0.0-0.4); LYMPHOCYTES PERCENT AUTO 9.8 % (24.0-44.0); MEAN CORPUSCULAR HEMOGLOBIN 32.7 pg (28.0-32.0); MEAN CORPUSCULAR HGB CONC 33.8 g/dl (32.0-36.0); MEAN PLATELET VOLUME 8.9 fl (9.4-12.4); MONOCYTES ABSOLUTE AUTO 0.8 K/mm3 (0.0-0.8); MONOCYTES PERCENT AUTO 7.3 % (0.0-8.0); NEUTROPHILS ABSOLUTE AUTO 8.5 K/mm3 (1.8-7.7); NEUTROPHILS PERCENT AUTO 80.2 % (41.0-71.0); PLATELET COUNT,PLT 198 K/mm3 (150-400); RED BLOOD CELL COUNT 3.85 M/mm3 (4.52-5.90); WHITE BLOOD CELL COUNT,WBC 10.53 K/mm3 (3.9-11.3)
[2024-08-01 05:51] LABS: HEMOGLOBIN 12.6 gm/dl (14.0-18.0); MEAN CORPUSCULAR VOLUME 96.9 fl (83.0-99.0)
[2024-08-01 05:55] LABS: A/G RATIO 0.8 (1-2); ALBUMIN 2.3 g/dl (3.4-5.0); ANION GAP 9.1 (5-15); BILIRUBIN TOTAL 0.6 mg/dL (0.2-1.0); CALCIUM 7.8 mg/dL (8.5-10.1); CREATININE 0.5 mg/dL (0.7-1.3); EST CRCL DRUG DOSING (CG) 141.72 mL/min; POTASSIUM,K 4.1 mEq/L (3.5-5.1); PROTEIN TOTAL,TP 5.1 g/dl (6.4-8.2)
[2024-08-01] MEDS: Aspirin 81 MG Tab.EC PO SCH (08:40)
[2024-08-01] MEDS: Rosuvastatin 10 MG Tab PO SCH (08:40)
[2024-08-01] MEDS: Enoxaparin 40 MG/0.4 ML Syringe SUBCUT SCH (08:40)
[2024-08-01] MEDS ORDERED: LORazepam 2 MG/ML SDV IV PRN (18:57)
[2024-08-01] MEDS: LORazepam 2 MG/ML SDV IVPUSH ONE (19:07)
[2024-08-01] MEDS: LORazepam 2 MG/ML SDV IV PRN (19:59)
[2024-08-01] MEDS ORDERED: Albuterol 6.7 GM Inhaler INH PRN (20:00)
[2024-08-01] MEDS: PHENOBARBITAL SODIUM IV ONE (20:47)
[2024-08-01] MEDS: SODIUM CHLORIDE 0.9% IV ONE (20:47)
[2024-08-02 05:37] LABS: BASOPHILS PERCENT AUTO 0.3 % (0.0-1.0); EOSINOPHILS ABSOLUTE AUTO 0.2 K/mm3 (0.0-0.4); EOSINOPHILS PERCENT AUTO 1.4 % (0.0-6.0); HEMOGLOBIN 11.6 gm/dl (14.0-18.0); IMMATURE GRAN ABSOLUTE AUTO 0.05 K/mm3 (0.00-0.05); IMMATURE GRAN PERCENT AUTO 0.4 % (0.0-0.4); LYMPHOCYTES ABSOLUTE AUTO 1.2 K/mm3 (1.0-4.8); LYMPHOCYTES PERCENT AUTO 10.3 % (24.0-44.0); MEAN CORPUSCULAR HEMOGLOBIN 33.2 pg (28.0-32.0); MEAN CORPUSCULAR HGB CONC 35.2 g/dl (32.0-36.0); MEAN CORPUSCULAR VOLUME 94.6 fl (83.0-99.0); MEAN PLATELET VOLUME 9.2 fl (9.4-12.4); MONOCYTES ABSOLUTE AUTO 0.9 K/mm3 (0.0-0.8); MONOCYTES PERCENT AUTO 7.8 % (0.0-8.0); NEUTROPHILS ABSOLUTE AUTO 9.4 K/mm3 (1.8-7.7); NEUTROPHILS PERCENT AUTO 79.8 % (41.0-71.0); PLATELET COUNT,PLT 183 K/mm3 (150-400); RED BLOOD CELL COUNT 3.49 M/mm3 (4.52-5.90); WHITE BLOOD CELL COUNT,WBC 11.79 K/mm3 (3.9-11.3)
[2024-08-02 05:43] LABS: A/G RATIO 0.7 (1-2); ANION GAP 6.4 (5-15); BILIRUBIN TOTAL 0.5 mg/dL (0.2-1.0); CALCIUM 7.7 mg/dL (8.5-10.1); CREATININE 0.6 mg/dL (0.7-1.3); EST CRCL DRUG DOSING (CG) 118.42 mL/min; POTASSIUM,K 3.4 mEq/L (3.5-5.1); PROTEIN TOTAL,TP 4.7 g/dl (6.4-8.2)
[2024-08-02] MEDS: NS with KCl 40mEq 1,000 ML IV SCH (07:45)
[2024-08-02] MEDS: Folic Acid 50 MG/10 ML MDV IV SCH (08:00)
[2024-08-02] MEDS: Multivitamin Tab PO SCH (08:41)
[2024-08-02] MEDS: Thiamine 100 MG Tab PO SCH (08:41)
[2024-08-03 04:50] LABS: BASOPHILS PERCENT AUTO 0.3 % (0.0-1.0); EOSINOPHILS ABSOLUTE AUTO 0.1 K/mm3 (0.0-0.4); HEMATOCRIT 39.2 % (42.0-52.0); HEMOGLOBIN 13.5 gm/dl (14.0-18.0); IMMATURE GRAN ABSOLUTE AUTO 0.02 K/mm3 (0.00-0.05); IMMATURE GRAN PERCENT AUTO 0.2 % (0.0-0.4); LYMPHOCYTES ABSOLUTE AUTO 1.2 K/mm3 (1.0-4.8); LYMPHOCYTES PERCENT AUTO 9.1 % (24.0-44.0); MEAN CORPUSCULAR HEMOGLOBIN 33.1 pg (28.0-32.0); MEAN CORPUSCULAR HGB CONC 34.4 g/dl (32.0-36.0); MEAN CORPUSCULAR VOLUME 96.1 fl (83.0-99.0); MEAN PLATELET VOLUME 9.4 fl (9.4-12.4); MONOCYTES PERCENT AUTO 7.8 % (0.0-8.0); NEUTROPHILS ABSOLUTE AUTO 10.5 K/mm3 (1.8-7.7); NEUTROPHILS PERCENT AUTO 81.6 % (41.0-71.0); PLATELET COUNT,PLT 210 K/mm3 (150-400); RED BLOOD CELL COUNT 4.08 M/mm3 (4.52-5.90)
[2024-08-03 05:19] LABS: A/G RATIO 0.6 (1-2); ALBUMIN 2.1 g/dl (3.4-5.0); ANION GAP 13.8 (5-15); BILIRUBIN TOTAL 0.7 mg/dL (0.2-1.0); CALCIUM 7.9 mg/dL (8.5-10.1); CREATININE 0.5 mg/dL (0.7-1.3); EST CRCL DRUG DOSING (CG) 142.11 mL/min; MAGNESIUM 1.6 mg/dL (1.8-2.4); POTASSIUM,K 3.8 mEq/L (3.5-5.1); PROTEIN TOTAL,TP 5.4 g/dl (6.4-8.2)
[2024-08-03] MEDS: Pantoprazole 40 MG Tab.CR PO SCH (05:52)
[2024-08-03] MEDS: Dextrose 5%-0.9% NaCl 1,000 ML IV SCH (05:54)
[2024-08-03] MEDS: Thiamine 200 MG/2 ML MDV IVPUSH ONE (06:01)
[2024-08-03] MEDS ORDERED: Magnesium Sulfate (4.06 MEQ/ML) 5 GM/10 ML SDV IV ONE (06:30)
[2024-08-03] MEDS: Magnesium Sulfate/Water Premix 2 GM in Premix Bag 1 BAG IV ONE (06:41)
[2024-08-03] MEDS: 50% Dextrose in Water 50 ML Syringe IVPUSH PRN (06:46)
[2024-08-03] MEDS: Pantoprazole 40 MG Vial IVPUSH SCH (08:11)
[2024-08-04 05:40] LABS: HEMATOCRIT 36.3 % (42.0-52.0); HEMOGLOBIN 12.9 gm/dl (14.0-18.0); MEAN CORPUSCULAR HEMOGLOBIN 32.5 pg (28.0-32.0); MEAN CORPUSCULAR HGB CONC 35.5 g/dl (32.0-36.0); MEAN CORPUSCULAR VOLUME 91.4 fl (83.0-99.0); MEAN PLATELET VOLUME 8.7 fl (9.4-12.4); PLATELET COUNT,PLT 209 K/mm3 (150-400); RED BLOOD CELL COUNT 3.97 M/mm3 (4.52-5.90); WHITE BLOOD CELL COUNT,WBC 12.21 K/mm3 (3.9-11.3)
[2024-08-04 06:18] LABS: A/G RATIO 0.6 (1-2); ALBUMIN 1.9 g/dl (3.4-5.0); ANION GAP 9.1 (5-15); BILIRUBIN TOTAL 0.5 mg/dL (0.2-1.0); CALCIUM 7.4 mg/dL (8.5-10.1); CREATININE 0.5 mg/dL (0.7-1.3); EST CRCL DRUG DOSING (CG) 142.3 mL/min; MAGNESIUM 1.5 mg/dL (1.8-2.4); PROTEIN TOTAL,TP 5.2 g/dl (6.4-8.2)
[2024-08-04 06:37] LABS: POTASSIUM,K 3.1 mEq/L (3.5-5.1)
[2024-08-04] MEDS ORDERED: Magnesium Sulfate/Water Premix 4 GM in Premix Bag 1 BAG IV ONE (07:00)
[2024-08-04] MEDS ORDERED: Magnesium Sulfate (4.06 MEQ/ML) 5 GM/10 ML SDV IV ONE (07:00)
[2024-08-04] MEDS: Magnesium Sulfate/Water Premix 4 GM in Premix Bag 1 BAG IV ONE (07:26)
[2024-08-04] MEDS: Potassium Chloride 10 MEQ in Premix Bag 1 BAG IV SCH (07:26)
[2024-08-04] MEDS: Thiamine 200 MG/2 ML MDV IVPUSH SCH (08:46)
[2024-08-04] MEDS: Nicotine 14 MG/24 Hr Patch TRDERM SCH (17:18)
[2024-08-05 05:43] LABS: HEMATOCRIT 34.7 % (42.0-52.0); HEMOGLOBIN 12.1 gm/dl (14.0-18.0); MEAN CORPUSCULAR HEMOGLOBIN 32.3 pg (28.0-32.0); MEAN CORPUSCULAR HGB CONC 34.9 g/dl (32.0-36.0); MEAN CORPUSCULAR VOLUME 92.5 fl (83.0-99.0); MEAN PLATELET VOLUME 9.2 fl (9.4-12.4); PLATELET COUNT,PLT 236 K/mm3 (150-400); RED BLOOD CELL COUNT 3.75 M/mm3 (4.52-5.90); WHITE BLOOD CELL COUNT,WBC 10.62 K/mm3 (3.9-11.3)
[2024-08-05 06:08] LABS: A/G RATIO 0.5 (1-2); ALBUMIN 1.9 g/dl (3.4-5.0); ANION GAP 10.5 (5-15); BILIRUBIN TOTAL 0.4 mg/dL (0.2-1.0); BUN/CREATININE RATIO 6.7 (14-18); CALCIUM 7.7 mg/dL (8.5-10.1); CREATININE 0.6 mg/dL (0.7-1.3); EST CRCL DRUG DOSING (CG) 118.58 mL/min; MAGNESIUM 1.9 mg/dL (1.8-2.4); POTASSIUM,K 3.5 mEq/L (3.5-5.1); PROTEIN TOTAL,TP 5.6 g/dl (6.4-8.2)
[2024-08-05] MEDS: LORazepam 2 MG/ML SDV IVPUSH ONE (08:52)
[2024-08-06 06:12] LABS: A/G RATIO 0.5 (1-2); ALBUMIN 1.7 g/dl (3.4-5.0); ANION GAP 10.5 (5-15); BILIRUBIN TOTAL 0.4 mg/dL (0.2-1.0); CALCIUM 7.5 mg/dL (8.5-10.1); CREATININE 0.5 mg/dL (0.7-1.3); EST CRCL DRUG DOSING (CG) 142.39 mL/min; MAGNESIUM 1.5 mg/dL (1.8-2.4); POTASSIUM,K 3.5 mEq/L (3.5-5.1); PROTEIN TOTAL,TP 4.9 g/dl (6.4-8.2)
[2024-08-06] MEDS ORDERED: Magnesium Sulfate (4.06 MEQ/ML) 5 GM/10 ML SDV IV ONE (06:30)
[2024-08-06] MEDS: Magnesium Sulfate/Water Premix 2 GM in Premix Bag 1 BAG IV ONE (06:42)
[2024-08-06] MEDS: Folic Acid 1 MG Tab PO SCH (10:37)
[2024-08-06 14:32] VITALS: BP 119/86; PULSE 109
== END 2024-08-06 14:32 | disposition home or self-care (01) ==
LOC: JD.ED 00:26 → JD.MS 06:39 → JD.ICU 08-01 20:57 → JD.MS 08-05 19:29
PROVIDERS: ADMIT Family Medicine; ATTEND Internal Medicine
DX: K81.0 Acute cholecystitis (principal); K85.20 Alcohol induced acute pancreatitis without necrosis or infection; E78.00 Pure hypercholesterolemia, unspecified; I25.10 Atherosclerotic heart disease of native coronary artery without angina pectoris; K21.9 Gastro-esophageal reflux disease without esophagitis; N40.0 Benign prostatic hyperplasia without lower urinary tract symptoms; H91.90 Unspecified hearing loss, unspecified ear; I25.2 Old myocardial infarction; M19.90 Unspecified osteoarthritis, unspecified site; K57.30 Diverticulosis of large intestine without perforation or abscess without bleeding; I10 Essential (primary) hypertension; H54.7 Unspecified visual loss; F41.9 Anxiety disorder, unspecified; F10.231 Alcohol dependence with withdrawal delirium; E87.1 Hypo-osmolality and hyponatremia; F32.A Depression, unspecified; J44.9 Chronic obstructive pulmonary disease, unspecified; F17.210 Nicotine dependence, cigarettes, uncomplicated; Z88.8 Allergy status to other drugs, medicaments and biological substances; Z86.73 Personal history of transient ischemic attack (TIA), and cerebral infarction without residual deficits; Z79.82 Long term (current) use of aspirin; Z90.49 Acquired absence of other specified parts of digestive tract; Z86.16 Personal history of COVID-19; Z79.899 Other long term (current) drug therapy; Z98.890 Other specified postprocedural states
CPT/HCPCS: 36415; 74177; 74177-26; 76705; 76705-26; 80053; 80061; 80307; 81001; 82947; 83690; 83735; 84484; 85025; 85027; 86140; 93005; 93010; 94760; 94761; 96361; 96374; 96375; 96376; 97110-GP; 97162-GP; 97530-GP; 99285; 99285-25; A9270-GY; J1171; J1650; J2060; J2405; J2470; J2560; J3411; J3475; J3480; J3490; J7030; J7042; J7120; Q9967